=== PATIENT | male | born 1980 | race Native Hawaiian/Other Pacific Islander ===

== ENCOUNTER 2016-09-26 20:56 | Emergency (ER) | payer MEDICAID ==
[2016-09-26] MEDS ORDERED: CLINDAMYCIN 600MG/4ML VIAL 600 MG in 0.9 % SODIUM CHLORIDE 100ML 100 ML IV ONE (21:26)
--- NOTE | 2016-09-26 21:31 | Emergency Department Record ---
History of Present Illness - General Chief complaint: Rash Stated complaint: RASH R INNER THIGH Time Seen by Provider: 09/26/16 21:26 Source: Patient Mode of Arrival: Ambulatory Limitations: No limitations - History of Present Illness Initial comments: 35 yo male presents to ED with a 1-day history of right lower extremity redness and warmth extending from the proximal popliteal region to the mid-lower extremity. Patient denies fevers, chills, or history of DM. Patient denies previous DVT. Patient reports 3-4 similar previous episodes diagnosed and treated as cellulitis. Patient reports hospitalization x1 for his symptoms previously due to elevated WBC and fever symptoms. MD complaint: Rash Onset/Timin -: Days(s) Location: RLE Severity scale (1-10): 4 Quality: Other Improves with: Rest Worsens with: Palpation, Movement Context: None Associated symptoms: Denies other symptoms Treatments Prior to Arrival: None - Related Data Previous Rx's Medication Instructions Recorded Clindamycin HCl 300 mg PO Q6H #40 capsule 09/26/16 Allergies Allergy/AdvReac Type Severity Reaction Status Date / Time No Known Drug Allergies Allergy Verified 09/26/16 21:11 Travel Screening - Travel/Exposure Within Last 30 Days Have you traveled within the last 30 days?: No - Travel Symptoms Symptom Screening: None Review of Systems Constitutional: Denies: Chills, Fever, Malaise, Night sweats Eyes: Denies: Eye discharge, Eye pain ENT: Denies: Congestion, Ear pain, Epistaxis Respiratory: Denies: Cough, Dyspnea Cardiovascular: Denies: Chest pain, Dyspnea on exertion Endocrine: Denies: Fatigue, Heat or cold intolerance Gastrointestinal: Denies: Abdominal pain, Nausea, Vomiting Genitourinary: Denies: Incontinence, Retention Musculoskeletal: Denies: Back pain, Gout, Joint swelling, Neck pain Skin: Reports: Rash. Denies: Bruising, Change in color, Change in hair/nails Neurological: Denies: Abnormal gait, Confusion, Headache, Seizure Psychiatric: Denies: Anxiety Hematological/Lymphatic: Denies: Anemia, Blood Clots Past Medical History - SOCIAL HISTORY Smoking Status: Never smoker - RESPIRATORY Hx Respiratory Disorders: No - CARDIOVASCULAR Hx Cardio Disorders: No - NEURO Hx Neuro Disorders: No - GI Hx GI Disorders: No - Hx Genitourinary Disorders: No - ENDOCRINE Hx Endocrine Disorders: No - MUSCULOSKELETAL Hx Musculoskeletal Disorders: No - PSYCH Hx Psych Problems: No - HEMATOLOGY/ONCOLOGY Hx Hematology/Oncology Disorders: No Family Medical History Any Significant Family History?: Yes Hx HTN: Grandparents Physical Exam - General General Appearance: Alert, Oriented x3, Cooperative, No acute distress Limitations: No limitations - Head Head exam: Atraumatic, Normocephalic, Normal inspection Head exam detail: negative: Abrasion, Contusion, Ruffin's sign, General tenderness, Hematoma, Laceration - Eye Eye exam: Normal appearance. negative: Conjunctival injection, Periorbital swelling, Periorbital tenderness, Scleral icterus - ENT Ear exam: negative: Auricular hematoma, Auricular trauma Nasal Exam: negative: Active bleeding, Discharge, Dried blood, Foreign body Mouth exam: negative: Drooling, Laceration, Muffled voice, Tongue elevation - Neck Neck exam: Normal inspection. negative: Meningismus, Tenderness - Respiratory Respiratory exam: Normal lung sounds bilaterally. negative: Rales, Respiratory distress, Rhonchi, Stridor - Cardiovascular Cardiovascular Exam: Regular rate, Normal rhythm, Normal heart sounds - GI/Abdominal GI/Abdominal exam: Soft. negative: Rebound, Rigid, Tenderness - Rectal Rectal exam: Deferred - exam: Deferred - Extremities Extremities exam: Tenderness, Other (Mild TTP in the area of erythema extending from the proximal popliteal region to the mid-calf, no appreciable swelling on examiantion.). negative: Calf tenderness, Pedal edema - Back Back exam: Denies: CVA tenderness (R), CVA tenderness (L) - Neurological Neurological exam: Alert, Normal gait, Oriented X3 - Psychiatric Psychiatric exam: Normal affect, Normal mood - Skin Skin exam: Rash. negative: Abrasion Type of lesion: negative: abrasion Course Vital Signs 09/26/16 21:11 Temperature 98.3 F Pulse Rate 78 Respiratory 18 Rate Blood Pressure 129/87 Pulse Ox 98 - Reevaluation(s) Reevaluation #1: 09/26/16 21:32 Patient was seen and examined, reports similar symptoms x 3-4 previously without history of diagnosis of DVT despite several dopplers. Patient has no significant swelling on examination to suggest DVT, and doppler is not felt to be necessary based on the patient's history and examination. Will obtain laboratory studies and initiate treatment with Clindamycin. Reevaluation #2: 09/26/16 22:21 Labs reviewed and are grossly unremarkable for an acute process. Clindamycin has completed infusion and the patient appears stable for discharge with instructions for reassessment in 24 hours to ensure symptoms are not worsening. Patient appear stable for discharge at this time. Medical Decision Making - Lab Data Result diagrams: 09/26/16 21:49 09/26/16 21:49 Disposition Disposition: Discharge Clinical Impression: Lower extremity cellulitis Qualifiers: Laterality: right Qualified Code(s): L03.115 - Cellulitis of right lower limb Disposition: Home, Self-Care Condition: (2) Stable Instructions: Cellulitis (ED) Additional Instructions: Return to ED in 24 hours for a recheck on your cellulitis symptoms. Clindmycin as directed. Follow-up with your family doctor in 1-3 days as directed. Prescriptions: Clindamycin HCl 300 mg PO Q6H #40 capsule Forms: Patient Portal Access Time of Disposition: 22:23 Quality - Quality Measures Quality Measures: N/A - Blood Pressure Screening Blood Pressure Classification: Pre-Hypertensive BP Reading Systolic Measurement: 129 Diastolic Measurement: 87 Screening for High Blood Pressure: < Pre-Hypertensive BP, F/U Documented > [ G8950] Pre-Hypertensive Follow-up Interventions: Referral to alternative/primary care provider.
[2016-09-26 22:05] LABS: BASO % 0.4 % (0-6); EOS % 2.1 % (0-6); GRAN % 63.9 % (47-80); HEMATOCRIT 47.6 % (42.0-52.0); HEMOGLOBIN 15.8 gm/dl (14.0-18.0); LYMPH % 23.6 % (16-45); MEAN CELL VOLUME 81.1 fl (81-97); MEAN CORPUSCULAR HEMOGLOBIN 26.9 pg (27-33); MEAN CORPUSCULAR HGB CONC 33.2 g/dl (32-36); MEAN PLATELET VOLUME 9.7 fl (7.4-10.4); PLATELET COUNT 285 K/uL (130-400); RED BLOOD COUNT 5.87 M/uL (4.40-5.70); RED CELL DISTRIBUTION WIDTH 13.3 % (11.5-14.5); WHITE BLOOD COUNT W/O DIFF 9.8 K/uL (4.2-12.2)
[2016-09-26 22:17] LABS: ALB/GLOB RATIO 1.3 (1.1-1.8); ALBUMIN 4.3 gm/dL (3.5-5.0); ALKALINE PHOSPHATASE 82 U/L (38-126); ALT/SGPT 41 U/L (21-72); ANION GAP 11.4 (7-16); AST/SGOT 30 U/L (17-59); BILIRUBIN,TOTAL 0.93 mg/dL (0.2-1.3); BLOOD UREA NITROGEN 14 mg/dL (9-20); CARBON DIOXIDE 23.6 mmol/L (22-30); CREATININE 0.8 mg/dL (0.66-1.25); EST GLOMERULAR FILTRATION RATE > 60 ml/min; GLUCOSE,RANDOM 98 mg/dL (70-110); TOTAL PROTEIN 7.6 gm/dL (6.3-8.2)
== END 2016-09-26 22:52 | disposition home or self-care (01) ==
LOC: ER 20:56
DX: L03.115 Cellulitis of right lower limb (principal)
CPT/HCPCS: 80053; 85025; 96365; 99284

== ENCOUNTER 2016-11-17 18:49 | Emergency (ER) | payer MEDICAID ==
[2016-11-17] MEDS ORDERED: CLINDAMYCIN (PEDIATRIC DOSING) 600 MG in 0.9 % SODIUM CHLORIDE 100ML 100 ML IV ONE (19:54)
--- NOTE | 2016-11-17 20:01 | Emergency Department Record ---
History of Present Illness - General Chief complaint: ENT Stated complaint: SWOLLEN MOUTH Time Seen by Provider: 11/17/16 19:50 Source: Patient Mode of Arrival: Ambulatory Limitations: No limitations - History of Present Illness Initial comments: pt has swelling of r cheek from broken tooth in r upper jaw. pt has appt w dentist next week complaint: Tooth pain Onset/Timin -: Days(s) Location: Other Severity: Moderate Severity scale (1-10): 8 Quality: Other Consistency: Constant Improves with: NSAID Context- Dental: History of dental caries, Poor dental care Associated Symptoms: Toothache, Other - Related Data Previous Rx's Medication Instructions Recorded Clindamycin HCl 150 mg PO Q8HR #21 capsule 11/17/16 Clindamycin HCl [Cleocin HCl] 300 mg PO Q8HR #21 capsule 11/17/16 Hydrocodone/Acetaminophen [[place] 1 each PO Q6HR #14 tablet 11/17/16 5-325 Tablet] Allergies Allergy/AdvReac Type Severity Reaction Status Date / Time No Known Drug Allergies Allergy Verified 09/26/16 21:11 Travel Screening - Travel/Exposure Within Last 30 Days Have you traveled within the last 30 days?: No - Travel Symptoms Symptom Screening: Chills Review of Systems Reviewed: No additional complaints except as noted below Constitutional: Reports: As per HPI. Denies: Chills, Fever, Malaise, Night sweats, Weakness, Weight change Eyes: Reports: As per HPI. Denies: Eye discharge, Eye pain, Photophobia, Vision change ENT: Reports: As per HPI. Denies: Congestion, Dental pain, Ear pain, Epistaxis , Hearing loss, Throat pain Respiratory: Reports: As per HPI. Denies: Cough, Dyspnea, Hemoptysis, Stridor, Wheezes Cardiovascular: Reports: As per HPI. Denies: Arrhythmia, Chest pain, Dyspnea on exertion, Edema, Murmurs, Orthopnea, Palpitations, Paroxysmal nocturnal dyspnea, Rheumatic Fever, Syncope Endocrine: Reports: As per HPI. Denies: Fatigue, Heat or cold intolerance, Polydipsia, Polyuria Gastrointestinal: Reports: As per HPI. Denies: Abdominal pain, Constipation, Diarrhea, Hematemesis, Hematochezia, Melena, Nausea, Vomiting Genitourinary: Reports: As per HPI. Denies: Dysuria, Frequency, Hematuria, Incontinence, Retention, Testicular pain, Testicular mass, Urgency Musculoskeletal: Reports: As per HPI. Denies: Arthralgia, Back pain, Gout, Joint swelling, Myalgia, Neck pain Skin: Reports: As per HPI. Denies: Bruising, Change in color, Change in hair/ nails, Lesions, Pruritus, Rash Neurological: Reports: As per HPI. Denies: Abnormal gait, Confusion, Headache, Numbness, Paresthesias, Seizure, Tingling, Tremors, Vertigo, Weakness Psychiatric: Reports: As per HPI. Denies: Anxiety, Auditory hallucinations, Depression, Homicidal thoughts, Suicidal thoughts, Visual hallucinations Hematological/Lymphatic: Reports: As per HPI. Denies: Anemia, Blood Clots, Easy bleeding, Easy bruising, Swollen glands Past Medical History - SOCIAL HISTORY Smoking Status: Never smoker Alcohol Use: Rare Drug Use: None - RESPIRATORY Hx Respiratory Disorders: No - CARDIOVASCULAR Hx Cardio Disorders: No - NEURO Hx Neuro Disorders: No - GI Hx GI Disorders: No - Hx Genitourinary Disorders: No - ENDOCRINE Hx Endocrine Disorders: No - MUSCULOSKELETAL Hx Musculoskeletal Disorders: No - PSYCH Hx Psych Problems: No - HEMATOLOGY/ONCOLOGY Hx Hematology/Oncology Disorders: No Family Medical History Any Significant Family History?: Yes Hx HTN: Grandparents Physical Exam - General General Appearance: Alert, Oriented x3, Cooperative, Mild distress - Head Head exam: Normal inspection - Eye Eye exam: Normal appearance, PERRL, EOMI Pupils: Normal accommodation - ENT ENT exam: Normal exam, Mucous membranes moist, Normal external ear exam, Normal orophraynx, Other (swelling of r cheek) Ear exam: Normal external inspection. negative: External canal tenderness Nasal Exam: Normal inspection. negative: Discharge, Sinus tenderness Mouth exam: Normal external inspection, Tongue normal Teeth exam: Dental caries, Dental tenderness #, Fractured tooth #, Gingival enlargement Throat exam: Normal inspection. negative: Tonsillar erythema, Tonsillar exudate - Neck Neck exam: Normal inspection, Full ROM. negative: Tenderness - Respiratory Respiratory exam: Normal lung sounds bilaterally. negative: Respiratory distress - Cardiovascular Cardiovascular Exam: Regular rate, Normal rhythm, Normal heart sounds - GI/Abdominal GI/Abdominal exam: Soft, Normal bowel sounds. negative: Tenderness - Rectal Rectal exam: Deferred - exam: Deferred - Extremities Extremities exam: Normal inspection, Full ROM, Normal capillary refill. negative: Tenderness - Back Back exam: Reports: Normal inspection, Full ROM. Denies: Muscle spasm, Rash noted, Tenderness - Neurological Neurological exam: Alert, CN II-XII intact, Normal gait, Oriented X3 - Psychiatric Psychiatric exam: Normal affect, Normal mood - Skin Skin exam: Dry, Intact, Normal color, Warm Course Vital Signs 11/17/16 19:26 Temperature 98.5 F Pulse Rate 96 H Respiratory 20 Rate Blood Pressure 139/96 Pulse Ox 97 Disposition Disposition: Discharge Clinical Impression: Dental abscess Disposition: Home, Self-Care Condition: (1) Good Instructions: Dental Abscess (ED) Additional Instructions: recheck tomorrow. return sooner if worse. sleep elevated Prescriptions: Hydrocodone/Acetaminophen [[place] 5-325 Tablet] 1 each PO Q6HR #14 tablet Clindamycin HCl 150 mg PO Q8HR #21 capsule Clindamycin HCl [Cleocin HCl] 300 mg PO Q8HR #21 capsule Forms: Patient Portal Access Quality - Quality Measures Quality Measures: N/A - Blood Pressure Screening Does Patient Have Any of the Following: No Blood Pressure Classification: Hypertensive Reading Systolic Measurement: 139 Diastolic Measurement: 96 Screening for High Blood Pressure: < Pre-Hypertensive BP, F/U Documented > [ G8950] Pre-Hypertensive Follow-up Interventions: Follow-up with rescreen every year.
[2016-11-17] MEDS ORDERED: IBUPROFEN 600 MG TABLET PO ONE (20:06)
== END 2016-11-17 20:39 | disposition home or self-care (01) ==
LOC: ER 18:49
DX: K04.7 Periapical abscess without sinus (principal)
CPT/HCPCS: 96365; 99284

== ENCOUNTER 2016-11-26 17:58 | Emergency (ER) | payer MEDICAID ==
[2016-11-26] MEDS ORDERED: CLINDAMYCIN 600MG/50ML PREMIX 600 MG/50 ML BAG IVPB ONE (19:44)
--- NOTE | 2016-11-26 19:50 | Emergency Department Record ---
History of Present Illness - General Chief complaint: Edema Stated complaint: PAIN AND SWELLING IN RT LEG Time Seen by Provider: 11/26/16 19:43 Source: Patient Mode of Arrival: Ambulatory Limitations: No limitations - History of Present Illness Initial comments: 36 yo male returns to ED for evaluation of redness and warmth to the touch affecting the RLE. Patient reports several similar episodes resulting from cellulitis to the RLE, reports several doppler examinations to exclude DVTs as well (all negative). Patient report low-grade fever this morning of 101 degrees , denies history of DM or other immunocompromised diseases. Patient has seen a advertising account executive previously as well for his symptoms without any further reason for why he develops cellulitis intermittently. MD Complaint: Extremity pain, Extremity swelling Onset/Timin -: Days(s) Location: Right, Lower Leg -: Yes Fever Severity scale (1-10): 7 Quality: Aching Consistency: Constant Improves with: Nothing Worsens with: Nothing Associated Symptoms: Fever - Related Data Previous Rx's Medication Instructions Recorded Clindamycin HCl 300 mg PO QID #40 capsule 11/26/16 Allergies Allergy/AdvReac Type Severity Reaction Status Date / Time No Known Drug Allergies Allergy Verified 09/26/16 21:11 Travel Screening - Travel/Exposure Within Last 30 Days Have you traveled within the last 30 days?: No Review of Systems Constitutional: Reports: Fever. Denies: Chills, Malaise, Night sweats Eyes: Denies: Eye discharge, Eye pain ENT: Denies: Congestion, Ear pain, Epistaxis Respiratory: Denies: Cough, Dyspnea Cardiovascular: Denies: Chest pain, Dyspnea on exertion Endocrine: Denies: Fatigue, Heat or cold intolerance Gastrointestinal: Denies: Abdominal pain, Nausea, Vomiting Genitourinary: Denies: Incontinence, Retention Musculoskeletal: Reports: Myalgia. Denies: Arthralgia, Back pain, Gout, Joint swelling Skin: Reports: Change in color. Denies: Bruising, Change in hair/nails Neurological: Denies: Abnormal gait, Confusion, Headache, Tingling Psychiatric: Denies: Anxiety Hematological/Lymphatic: Denies: Anemia, Blood Clots Past Medical History - SOCIAL HISTORY Smoking Status: Never smoker Alcohol Use: Rare Drug Use: None - RESPIRATORY Hx Respiratory Disorders: No - CARDIOVASCULAR Hx Cardio Disorders: No - NEURO Hx Neuro Disorders: No - GI Hx GI Disorders: No - Hx Genitourinary Disorders: No - ENDOCRINE Hx Endocrine Disorders: No - MUSCULOSKELETAL Hx Musculoskeletal Disorders: No - PSYCH Hx Psych Problems: No - HEMATOLOGY/ONCOLOGY Hx Hematology/Oncology Disorders: No Family Medical History Any Significant Family History?: Yes Hx HTN: Grandparents Physical Exam - General General Appearance: Alert, Oriented x3, Cooperative, Mild distress Limitations: No limitations - Head Head exam: Atraumatic, Normocephalic, Normal inspection Head exam detail: negative: Abrasion, Contusion, Ruffin's sign, General tenderness, Hematoma, Laceration - Eye Eye exam: Normal appearance. negative: Conjunctival injection, Periorbital swelling, Periorbital tenderness, Scleral icterus - ENT Ear exam: negative: Auricular hematoma, Auricular trauma Nasal Exam: negative: Active bleeding, Discharge, Dried blood, Foreign body Mouth exam: negative: Drooling, Laceration, Muffled voice, Tongue elevation - Neck Neck exam: Normal inspection. negative: Meningismus, Tenderness - Respiratory Respiratory exam: Normal lung sounds bilaterally. negative: Respiratory distress, Rhonchi, Stridor, Wheezes - Cardiovascular Cardiovascular Exam: Regular rate, Normal rhythm, Normal heart sounds - GI/Abdominal GI/Abdominal exam: Soft. negative: Rebound, Rigid, Tenderness - Rectal Rectal exam: Deferred - exam: Deferred - Extremities Extremities exam: Tenderness, Other (Swelling and erythema/warmth to palpation of the RLE c/w cellulitis). negative: Calf tenderness, Pedal edema - Back Back exam: Denies: CVA tenderness (R), CVA tenderness (L) - Neurological Neurological exam: Alert, Normal gait, Oriented X3 - Skin Skin exam: Erythema Distribution of rash: RLE Course Vital Signs 11/26/16 19:14 Temperature 98.0 F Pulse Rate 83 Respiratory 18 Rate Blood Pressure 123/74 Pulse Ox 98 - Reevaluation(s) Reevaluation #1: 11/26/16 19:49 Symptoms appear c/w cellulitis, patient reports several venous doppler examinations all negative for DVT. As a result, transfer for repeat doppler does not seem necessary at this time, will initiate treatment with Clindamycin as with previous episodes and reassess. Reevaluation #2: 11/26/16 20:35 Labs reviewed, WBC 14.8, labs are otherwise grossly unremarkable for an acute process. Clindamycin has completed infusion, all questions were answered, and the patient appears stable for discharge at this time. Patient was instructed to return to ED for any worsening of his symptoms immediately. Medical Decision Making - Lab Data Result diagrams: 11/26/16 19:52 11/26/16 19:52 Disposition Disposition: Discharge Clinical Impression: Lower extremity cellulitis Qualifiers: Laterality: right Qualified Code(s): L03.115 - Cellulitis of right lower limb Disposition: Home, Self-Care Condition: (2) Stable Instructions: Cellulitis (ED) Additional Instructions: Return to ED if your symptoms worsen or if you have any concerns. Clindamycin as directed. Follow-up with your family doctor in 3-5 days as directed. Prescriptions: Clindamycin HCl 300 mg PO QID #40 capsule Forms: Patient Portal Access Time of Disposition: 19:51 Quality - Quality Measures Quality Measures: N/A - Blood Pressure Screening Does Patient Have Any of the Following: No Blood Pressure Classification: Pre-Hypertensive BP Reading Systolic Measurement: 123 Diastolic Measurement: 74 Screening for High Blood Pressure: < Pre-Hypertensive BP, F/U Documented > [ G8950] Pre-Hypertensive Follow-up Interventions: Referral to alternative/primary care provider.
[2016-11-26 20:06] LABS: HEMOGLOBIN 15.6 gm/dl (14.0-18.0); MEAN CELL VOLUME 81.5 fl (81-97); MEAN CORPUSCULAR HGB CONC 33.2 g/dl (32-36); MEAN PLATELET VOLUME 9.5 fl (7.4-10.4); PLATELET COUNT 224 K/uL (130-400); RED BLOOD COUNT 5.77 M/uL (4.40-5.70); RED CELL DISTRIBUTION WIDTH 13.4 % (11.5-14.5); WHITE BLOOD COUNT W/O DIFF 14.8 K/uL (4.2-12.2)
[2016-11-26 20:24] LABS: ALB/GLOB RATIO 1.2 (1.1-1.8); ALBUMIN 4.2 g/dL (4.0-5.0); ALKALINE PHOSPHATASE 71 U/L (40-129); ALT/SGPT 17 U/L (<41); AST/SGOT 23 U/L (10.0-50.0); BLOOD UREA NITROGEN 17 mg/dL (6-20); CREATININE 1.1 mg/dL (0.7-1.2); EST GLOMERULAR FILTRATION RATE > 60 mL/min; GLUCOSE,RANDOM 88 mg/dL (74-109); TOTAL PROTEIN 7.7 g/dL (6.6-8.7)
[2016-11-26] MEDS ORDERED: CLINDAMYCIN 150 MG CAP PO ONE (20:37)
[2016-11-26 20:41] LABS: PLATELET ESTIMATE NORMAL (NORMAL)
== END 2016-11-26 20:57 | disposition home or self-care (01) ==
LOC: ER 17:58
DX: L03.115 Cellulitis of right lower limb (principal)
CPT/HCPCS: 80053; 85027; 96365; 99284

== ENCOUNTER 2016-11-28 21:30 | Emergency (ER) | payer MEDICAID ==
--- NOTE | 2016-11-28 22:18 | Emergency Department Record ---
History of Present Illness - General Chief Complaint: Recheck - Other Stated Complaint: LOWER RT LEG SWELLING/REDNESS Time Seen by Provider: 11/28/16 21:40 Source: Patient Mode of arrival: Ambulatory Limitations: No limitations - History of Present Illness Initial Comments: 36 yo male returns to ED for evaluation of increased swelling and "little bumps to the lower leg" following treatment for recurrent cellulitis of the right LE. Patient denies reoccurrence of fever symptoms and reports that the skin of the LE is less warm to palpation. Patient reports several previous episodes of cellulitis to the RLE, denies previous history of DVT. MD Complaint: Wound re-check Onset/Timin -: Days(s) Initial Visit For: Cellulitis Returns Today for: Cellulitis follow-up Symptoms Since Prior Visit: Worsening swelling Associated Symptoms: None - Related Data Previous Rx's Medication Instructions Recorded Clindamycin HCl 300 mg PO QID #40 capsule 11/26/16 Allergies Allergy/AdvReac Type Severity Reaction Status Date / Time No Known Drug Allergies Allergy Verified 09/26/16 21:11 Travel Screening - Travel/Exposure Within Last 30 Days Have you traveled within the last 30 days?: No Review of Systems Constitutional: Denies: Chills, Fever, Malaise, Night sweats Eyes: Denies: Eye discharge, Eye pain ENT: Denies: Congestion, Ear pain, Epistaxis Respiratory: Denies: Cough, Dyspnea Cardiovascular: Denies: Chest pain, Dyspnea on exertion Endocrine: Denies: Fatigue, Heat or cold intolerance Gastrointestinal: Denies: Abdominal pain, Nausea, Vomiting Genitourinary: Denies: Incontinence, Retention Musculoskeletal: Reports: Myalgia. Denies: Arthralgia, Back pain, Gout, Joint swelling Skin: Reports: Change in color (redness to the RLE, improving per patient). Denies: Bruising Neurological: Denies: Abnormal gait, Confusion, Headache, Seizure Psychiatric: Denies: Anxiety Hematological/Lymphatic: Denies: Anemia, Blood Clots Past Medical History - SOCIAL HISTORY Smoking Status: Never smoker Alcohol Use: None Drug Use: None - RESPIRATORY Hx Respiratory Disorders: No - CARDIOVASCULAR Hx Cardio Disorders: No - NEURO Hx Neuro Disorders: No - GI Hx GI Disorders: No - Hx Genitourinary Disorders: No - ENDOCRINE Hx Endocrine Disorders: No - MUSCULOSKELETAL Hx Musculoskeletal Disorders: No - PSYCH Hx Psych Problems: No - HEMATOLOGY/ONCOLOGY Hx Hematology/Oncology Disorders: No Family Medical History Any Significant Family History?: Yes Hx HTN: Grandparents Physical Exam - General General Appearance: Alert, Oriented x3, Cooperative, Mild distress Limitations: No limitations - Head Head exam: Atraumatic, Normocephalic, Normal inspection Head exam detail: negative: Abrasion, Contusion, Ruffin's sign, General tenderness, Hematoma, Laceration - Eye Eye exam: Normal appearance. negative: Conjunctival injection, Periorbital swelling, Periorbital tenderness, Scleral icterus - ENT Ear exam: negative: Auricular hematoma, Auricular trauma Nasal Exam: negative: Active bleeding, Discharge, Dried blood, Foreign body Mouth exam: negative: Drooling, Laceration, Muffled voice, Tongue elevation - Neck Neck exam: Normal inspection. negative: Meningismus, Tenderness - Respiratory Respiratory exam: Normal lung sounds bilaterally. negative: Rales, Respiratory distress, Rhonchi, Stridor - Cardiovascular Cardiovascular Exam: Regular rate, Normal rhythm, Normal heart sounds - GI/Abdominal GI/Abdominal exam: Soft. negative: Rebound, Rigid, Tenderness - Rectal Rectal exam: Deferred - exam: Deferred - Extremities Extremities exam: Full ROM, Pedal edema, Tenderness, Other (Increeased STS of the RLE on examination, erythema is less intense from previous visit, warmth has improved.) - Back Back exam: Denies: CVA tenderness (R), CVA tenderness (L) - Neurological Neurological exam: Alert, Normal gait, Oriented X3 - Psychiatric Psychiatric exam: Normal affect, Normal mood - Skin Skin exam: Erythema. negative: Abrasion Type of lesion: negative: abrasion Course Vital Signs 11/28/16 22:08 Temperature 98.8 F Pulse Rate [ 78 Pulse Ox Probe] Respiratory 20 Rate Blood Pressure 124/73 [Left Arm] Pulse Ox 98 - Reevaluation(s) Reevaluation #1: 11/28/16 22:17 Labs ordered including D-Dimer for further evaluation of the patient's increased LE swelling, although it appears the patient's cellulitis has improved from previous visit. Reevaluation #2: 11/28/16 22:41 Labs reviewed, WBC 7.6, D-Dimer 0.38. Labs are unremarkable for an acute process. Patient was updated on all results, appears that his cellulitis is improving overall and the patient appears stable for discharge at this time. Medical Decision Making - Lab Data Result diagrams: 11/28/16 22:15 11/28/16 22:15 Disposition Disposition: Discharge Clinical Impression: Lower extremity cellulitis Qualifiers: Laterality: right Qualified Code(s): L03.115 - Cellulitis of right lower limb Disposition: Home, Self-Care Condition: (2) Stable Instructions: Cellulitis (ED) Additional Instructions: Return to ED if your symptoms worsen or if you have any concerns. Continue clindamycin as directed. Follow-up with your family doctor in 3-5 days as directed. Forms: Patient Portal Access Time of Disposition: 22:44 Quality - Quality Measures Quality Measures: N/A - Blood Pressure Screening Does Patient Have Any of the Following: No Blood Pressure Classification: Normal BP Reading Systolic Measurement: 118 Diastolic Measurement: 71 Screening for High Blood Pressure: < Normal BP, F/U Not Required > [G8783]
[2016-11-28] MEDS: CLINDAMYCIN 600MG/50ML PREMIX 600 MG/50 ML BAG IVPB ONE (22:23)
[2016-11-28] MEDS: FLUCONAZOLE 100 MG TABLET PO ONE (22:23)
[2016-11-28 22:26] LABS: HEMOGLOBIN 14.8 gm/dl (14.0-18.0); MEAN CELL VOLUME 80.3 fl (81-97); MEAN CORPUSCULAR HGB CONC 33.6 g/dl (32-36); MEAN PLATELET VOLUME 9.7 fl (7.4-10.4); PLATELET COUNT 258 K/uL (130-400); RED BLOOD COUNT 5.48 M/uL (4.40-5.70); WHITE BLOOD COUNT W/O DIFF 7.6 K/uL (4.2-12.2)
[2016-11-28 22:43] LABS: ALB/GLOB RATIO 1.1 (1.1-1.8); ALBUMIN 3.9 g/dL (4.0-5.0); ALKALINE PHOSPHATASE 63 U/L (40-129); ALT/SGPT 14 U/L (<41); AST/SGOT 21 U/L (10.0-50.0); BLOOD UREA NITROGEN 11 mg/dL (6-20); CREATININE 0.8 mg/dL (0.7-1.2); EST GLOMERULAR FILTRATION RATE > 60 mL/min; GLUCOSE,RANDOM 95 mg/dL (74-109); TOTAL PROTEIN 7.4 g/dL (6.6-8.7)
== END 2016-11-28 22:55 | disposition home or self-care (01) ==
LOC: ER 21:30
DX: L03.115 Cellulitis of right lower limb (principal); R60.0 Localized edema
CPT/HCPCS: 80053; 85027; 85379; 96365; 99284

== ENCOUNTER 2016-12-22 18:16 | Emergency (ER) | payer MEDICAID ==
[2016-12-22] MEDS ORDERED: CLINDAMYCIN 600MG/50ML PREMIX 600 MG/50 ML BAG IVPB ONE (19:18)
[2016-12-22 19:30] LABS: BASO % 0.1 % (0-6); HEMATOCRIT 45.9 % (42.0-52.0); HEMOGLOBIN 15.3 gm/dl (14.0-18.0); LYMPH % 3.4 % (16-45); MEAN CELL VOLUME 81.4 fl (81-97); MEAN CORPUSCULAR HEMOGLOBIN 27.1 pg (27-33); MEAN CORPUSCULAR HGB CONC 33.3 g/dl (32-36); MEAN PLATELET VOLUME 9.9 fl (7.4-10.4); MONO % 6.2 % (0-9); PLATELET COUNT 251 K/uL (130-400); RED BLOOD COUNT 5.64 M/uL (4.40-5.70); RED CELL DISTRIBUTION WIDTH 13.5 % (11.5-14.5)
[2016-12-22 19:32] LABS: WHITE BLOOD COUNT W/O DIFF 21.1 K/uL (4.2-12.2)
[2016-12-22 19:47] LABS: PLATELET ESTIMATE NORMAL (NORMAL)
--- NOTE | 2016-12-22 20:04 | Emergency Department Record ---
History of Present Illness - General Chief complaint: Extremity Problem Stated complaint: RED,PAINFUL SWELLING IN RT LEG Time Seen by Provider: 12/22/16 19:06 Source: Patient Mode of Arrival: Ambulatory Limitations: No limitations - History of Present Illness Initial comments: pt has developed cellulitis for the 5th time in 5 months in his r lower leg. it reoccured today. he has a fever. MD Complaint: Extremity pain, Extremity swelling Onset/Timin -: Hour(s) Location: Right, Lower Leg, Thigh History of Same: Yes Severity scale (1-10): 7 Quality: Other Consistency: Constant Improves with: Immobilization, Rest Worsens with: Exertion, Walking, Weight bearing Associated Symptoms: Denies other symptoms - Related Data Home Medications Medication Instructions Recorded Confirmed Last Taken No Home Med [NO HOME MEDS] 12/22/16 12/22/16 Unknown Allergies Allergy/AdvReac Type Severity Reaction Status Date / Time No Known Drug Allergies Allergy Verified 12/22/16 18:21 Travel Screening - Travel/Exposure Within Last 30 Days Have you traveled within the last 30 days?: No - Travel/Exposure Within Last Year Have you traveled outside the [place] in the last year?: No - Additonal Travel Details Have you been exposed to anyone with a communicable illness?: No - Travel Symptoms Symptom Screening: None Review of Systems Reviewed: No additional complaints except as noted below Constitutional: Reports: As per HPI. Denies: Chills, Fever, Malaise, Night sweats, Weakness, Weight change Eyes: Reports: As per HPI. Denies: Eye discharge, Eye pain, Photophobia, Vision change ENT: Reports: As per HPI. Denies: Congestion, Dental pain, Ear pain, Epistaxis , Hearing loss, Throat pain Respiratory: Reports: As per HPI. Denies: Cough, Dyspnea, Hemoptysis, Stridor, Wheezes Cardiovascular: Reports: As per HPI. Denies: Arrhythmia, Chest pain, Dyspnea on exertion, Edema, Murmurs, Orthopnea, Palpitations, Paroxysmal nocturnal dyspnea, Rheumatic Fever, Syncope Endocrine: Reports: As per HPI. Denies: Fatigue, Heat or cold intolerance, Polydipsia, Polyuria Gastrointestinal: Reports: As per HPI. Denies: Abdominal pain, Constipation, Diarrhea, Hematemesis, Hematochezia, Melena, Nausea, Vomiting Genitourinary: Reports: As per HPI. Denies: Dysuria, Frequency, Hematuria, Incontinence, Retention, Testicular pain, Testicular mass, Urgency Musculoskeletal: Reports: As per HPI. Denies: Arthralgia, Back pain, Gout, Joint swelling, Myalgia, Neck pain Skin: Reports: As per HPI. Denies: Bruising, Change in color, Change in hair/ nails, Lesions, Pruritus, Rash Neurological: Reports: As per HPI. Denies: Abnormal gait, Confusion, Headache, Numbness, Paresthesias, Seizure, Tingling, Tremors, Vertigo, Weakness Psychiatric: Reports: As per HPI. Denies: Anxiety, Auditory hallucinations, Depression, Homicidal thoughts, Suicidal thoughts, Visual hallucinations Hematological/Lymphatic: Reports: As per HPI. Denies: Anemia, Blood Clots, Easy bleeding, Easy bruising, Swollen glands Past Medical History - SOCIAL HISTORY Smoking Status: Never smoker Alcohol Use: Rare Drug Use: None - RESPIRATORY Hx Respiratory Disorders: No - CARDIOVASCULAR Hx Cardio Disorders: No - NEURO Hx Neuro Disorders: No - GI Hx GI Disorders: No - Hx Genitourinary Disorders: No - ENDOCRINE Hx Endocrine Disorders: No - MUSCULOSKELETAL Hx Musculoskeletal Disorders: No - PSYCH Hx Psych Problems: No - HEMATOLOGY/ONCOLOGY Hx Hematology/Oncology Disorders: No Family Medical History Any Significant Family History?: Yes Hx HTN: Grandparents Physical Exam - General General Appearance: Alert, Oriented x3, Cooperative, Mild distress - Head Head exam: Normal inspection - Eye Eye exam: Normal appearance, PERRL, EOMI Pupils: Normal accommodation - ENT ENT exam: Normal exam, Mucous membranes moist, Normal external ear exam, Normal orophraynx Ear exam: Normal external inspection. negative: External canal tenderness Nasal Exam: Normal inspection. negative: Discharge, Sinus tenderness Mouth exam: Normal external inspection, Tongue normal Teeth exam: Normal inspection. negative: Dental caries Throat exam: Normal inspection. negative: Tonsillar erythema, Tonsillar exudate - Neck Neck exam: Normal inspection, Full ROM. negative: Tenderness - Respiratory Respiratory exam: Normal lung sounds bilaterally. negative: Respiratory distress - Cardiovascular Cardiovascular Exam: Normal rhythm, Normal heart sounds, Tachycardia - GI/Abdominal GI/Abdominal exam: Soft, Normal bowel sounds. negative: Tenderness - Rectal Rectal exam: Deferred - exam: Deferred - Extremities Extremities exam: Normal inspection, Full ROM, Normal capillary refill. negative: Tenderness Image of Full Body: 1 - erythema, swelling, hot, tender - Back Back exam: Reports: Normal inspection, Full ROM. Denies: Muscle spasm, Rash noted, Tenderness - Neurological Neurological exam: Alert, CN II-XII intact, Normal gait, Oriented X3 - Psychiatric Psychiatric exam: Normal affect, Normal mood - Skin Skin exam: Dry, Intact, Normal color, Warm Course Vital Signs 12/22/16 18:24 Temperature 100.9 F H Pulse Rate 116 H Respiratory 20 Rate Blood Pressure 131/98 Pulse Ox 96 - Reevaluation(s) Reevaluation #1: 12/22/16 20:36 c/w dr lang, dr grider, dr rockwell Medical Decision Making - Lab Data Result diagrams: 12/22/16 18:50 12/22/16 18:50 Lab Results 12/22/16 12/22/16 Range/Units 18:50 18:50 WBC 21.1 H* (4.2-12.2) K/uL RBC 5.64 (4.40-5.70) M/uL Hgb 15.3 (14.0-18.0) gm/dl Hct 45.9 (42.0-52.0) % MCV 81.4 (81-97) fl MCH 27.1 (27-33) pg MCHC 33.3 (32-36) g/dl RDW 13.5 (11.5-14.5) % Plt Count 251 (130-400) K/uL MPV 9.9 (7.4-10.4) fl Neutrophils % 88.0 H (47-80) % Band Neutrophils % 2.0 (0-5) % Lymphocytes % 3.4 L (16-45) % Monocytes % 6.2 (0-9) % Eosinophils % 0.0 (0-6) % Basophils % 0.1 (0-6) % Lymphocytes 4.0 L (16-45) % Monocytes 6.0 (0-9) % Platelet Estimate Normal (NORMAL) RBC Morphology Normal D-Dimer 0.21 (0-0.59) mg/L FEU Disposition Disposition: Transfer Clinical Impression: Cellulitis Qualifiers: Site of cellulitis: extremity Site of cellulitis of extremity: lower extremity Laterality: right Qualified Code(s): L03.115 - Cellulitis of right lower limb Sepsis Qualifiers: Sepsis type: sepsis due to unspecified organism Qualified Code(s): A41.9 - Sepsis, unspecified organism Disposition: [facility] Transfer Transfer To: [facility] Reason For Transfer: inf disease Accepting Physician: dr grider Time Discussed w/Accepting Physician: 20:38 Forms: Patient Portal Access Quality - Quality Measures Quality Measures: N/A - Blood Pressure Screening Does Patient Have Any of the Following: No Blood Pressure Classification: Hypertensive Reading Systolic Measurement: 131 Diastolic Measurement: 98 Screening for High Blood Pressure: < Pre-Hypertensive BP, F/U Documented > [ G8950] Pre-Hypertensive Follow-up Interventions: Follow-up with rescreen every year.
[2016-12-22] MEDS ORDERED: ACETAMINOPHEN 500 MG TABLET PO ONE (20:20)
[2016-12-22 20:38] LABS: BLOOD UREA NITROGEN 12 mg/dL (6-20); CREATININE 0.9 mg/dL (0.7-1.2); EST GLOMERULAR FILTRATION RATE > 60 mL/min; GLUCOSE,RANDOM 109 mg/dL (74-109)
--- NOTE | 2016-12-24 09:40 | RADIOLOGY REPORT ---
DATE: 12/22/2016. EXAM: RIGHT LEG. HISTORY: Pain. TECHNIQUE: Four views of the right leg. COMPARISON: None. ENCOUNTER: Initial. FINDINGS: Diffuse subcutaneous edema which may reflect cellulitis. No soft tissue gas. No acute osseous abnormality. Small calcaneal spurs. IMPRESSION: DIFFUSE SUBCUTANEOUS EDEMA/CELLULITIS. SMALL CALCANEAL SPURS. JOB NUMBER: [id number] MTDD
== END 2016-12-22 21:40 | disposition short-term general hospital (02) ==
LOC: ER 18:16
DX: A41.9 Sepsis, unspecified organism (principal); L03.115 Cellulitis of right lower limb
CPT/HCPCS: 80048; 85027; 85379; 96365; 99285

== ENCOUNTER 2017-06-23 17:38 | Emergency (ER) | payer MEDICAID ==
[2017-06-23] MEDS ORDERED: CLINDAMYCIN 600MG/50ML PREMIX 600 MG/50 ML BAG IVPB ONE (18:49)
--- NOTE | 2017-06-23 18:55 | Emergency Department Record ---
History of Present Illness - General Chief complaint: Lower Extremity Pain Stated complaint: RIGHT LEG SWELLING Time Seen by Provider: 06/23/17 18:29 Source: Patient Mode of Arrival: Ambulatory Limitations: No limitations - History of Present Illness Initial comments: 36 yo male presents to ED for evaluation of swelling and redness to the right lower extremity that began last night. Patient reports numerous episodes of cellulitis to the right lower extremity previously, reports undergoing several dopplers of the lower extremity which are "always negative for blood clots". Patient has been seen by an ID specialist for his recurrent cellulitis symptoms at [facility], had been taking daily PCN to reduce the incidence of recurrent infections as well. Patient reports that his symptoms are worse with increased activity at work. Patient denies fevers, chills, nausea, or vomiting symptoms. MD Complaint: Extremity swelling Onset/Timin -: Days(s) Location: Right, Lower Leg History of Same: Yes Severity scale (1-10): 3 Quality: Other Consistency: Constant Improves with: Nothing Worsens with: Walking - Related Data Previous Rx's Medication Instructions Recorded Clindamycin HCl 300 mg PO Q6H #28 capsule 06/23/17 Allergies Allergy/AdvReac Type Severity Reaction Status Date / Time No Known Drug Allergies Allergy Verified 12/22/16 18:21 Travel Screening - Travel/Exposure Within Last 30 Days Have you traveled within the last 30 days?: No Review of Systems Constitutional: Denies: Chills, Fever, Malaise, Night sweats Eyes: Denies: Eye discharge, Eye pain ENT: Denies: Congestion, Ear pain, Epistaxis Respiratory: Denies: Cough, Dyspnea Cardiovascular: Denies: Chest pain, Dyspnea on exertion Endocrine: Denies: Fatigue, Heat or cold intolerance Gastrointestinal: Denies: Nausea, Vomiting Genitourinary: Denies: Incontinence, Retention Musculoskeletal: Denies: Arthralgia, Back pain, Gout, Joint swelling Skin: Reports: Change in color, Rash. Denies: Bruising, Change in hair/nails Neurological: Denies: Abnormal gait, Confusion, Headache, Tingling Psychiatric: Denies: Anxiety Hematological/Lymphatic: Denies: Anemia, Blood Clots Past Medical History - SOCIAL HISTORY Smoking Status: Never smoker Alcohol Use: Occasional Drug Use: None - RESPIRATORY Hx Respiratory Disorders: No - CARDIOVASCULAR Hx Cardio Disorders: No - NEURO Hx Neuro Disorders: No - GI Hx GI Disorders: No - Hx Genitourinary Disorders: No - ENDOCRINE Hx Endocrine Disorders: No - MUSCULOSKELETAL Hx Musculoskeletal Disorders: No - PSYCH Hx Psych Problems: No - HEMATOLOGY/ONCOLOGY Hx Hematology/Oncology Disorders: No Family Medical History Any Significant Family History?: Yes Hx HTN: Grandparents Physical Exam - General General Appearance: Alert, Oriented x3, Cooperative, Mild distress Limitations: No limitations - Head Head exam: Atraumatic, Normocephalic, Normal inspection Head exam detail: negative: Abrasion, Contusion, Ruffin's sign, General tenderness, Hematoma - Eye Eye exam: Normal appearance. negative: Conjunctival injection, Periorbital swelling, Periorbital tenderness, Scleral icterus - ENT Ear exam: negative: Auricular hematoma, Auricular trauma Nasal Exam: negative: Active bleeding, Discharge, Dried blood, Foreign body, Sinus tenderness Mouth exam: negative: Drooling, Laceration, Muffled voice, Tongue elevation - Neck Neck exam: Normal inspection. negative: Meningismus, Tenderness - Respiratory Respiratory exam: Normal lung sounds bilaterally. negative: Respiratory distress, Rhonchi, Stridor, Wheezes - Cardiovascular Cardiovascular Exam: Regular rate, Normal rhythm, Normal heart sounds - GI/Abdominal GI/Abdominal exam: Soft. negative: Distended, Rebound, Rigid, Tenderness - Rectal Rectal exam: Deferred - exam: Deferred - Extremities Extremities exam: Tenderness, Other (Diffuse erythema to the right LE with clear demarcation present, mild STS, no calf pain or edema present.). negative : Calf tenderness, Pedal edema - Back Back exam: Denies: CVA tenderness (R), CVA tenderness (L) - Neurological Neurological exam: Alert, Normal gait, Oriented X3 - Psychiatric Psychiatric exam: Normal affect, Normal mood - Skin Skin exam: Erythema. negative: Abrasion Type of lesion: Rash Course Vital Signs 06/23/17 18:36 Temperature 98.2 F Pulse Rate 94 H Respiratory 20 Rate Blood Pressure 128/83 Pulse Ox 100 - Reevaluation(s) Reevaluation #1: 06/23/17 18:54 Patient was seen and examined, discussed ordering doppler examination to exclude DVT, patient declined. Patient reports numerous episodes of cellulitis with similar presentations, will obtain laboratory studies and initiate treatment with Clindamycin as this has improved his symptoms previously. Reevaluation #2: 06/23/17 19:43 Laborite studies were reviewed, CRP 16, WBC 16.4, with 84% neutrophils. Patient was updated on all results, and reports that he wants to be treated as an outpatient. Will discharge home on Clindamycin with instructions to return to the ED in 48 hours for re-evaluation of his cellulitis symptoms. Medical Decision Making - Lab Data Result diagrams: 06/23/17 19:00 06/23/17 19:00 Disposition Disposition: Discharge Clinical Impression: Cellulitis of lower extremity Qualifiers: Laterality: right Qualified Code(s): L03.115 - Cellulitis of right lower limb Disposition: Home, Self-Care Condition: (2) Stable Instructions: Cellulitis (ED) Additional Instructions: Return to ED if your symptoms worsen or if you have any concerns. Clindamycin as directed. Follow-up with your family doctor in 1-3 days as directed. Prescriptions: Clindamycin HCl 300 mg PO Q6H #28 capsule Forms: Patient Portal Access Time of Disposition: 19:11 Quality - Quality Measures Quality Measures: N/A - Blood Pressure Screening Does Patient Have Any of the Following: No Blood Pressure Classification: Hypertensive Reading Systolic Measurement: 126 Diastolic Measurement: 92 Screening for High Blood Pressure: < First Hypertensive BP, F/U Documented > [ G8950] First Hypertensive Follow-up Interventions: Referral to alternative/primary care provider.
[2017-06-23 19:19] LABS: HEMATOCRIT 47.6 % (42.0-52.0); HEMOGLOBIN 15.6 gm/dl (14.0-18.0); MEAN CELL VOLUME 82.6 fl (81-97); MEAN CORPUSCULAR HGB CONC 32.8 g/dl (32-36); MEAN PLATELET VOLUME 9.7 fl (7.4-10.4); PLATELET COUNT 239 K/uL (130-400); RED BLOOD COUNT 5.76 M/uL (4.40-5.70); RED CELL DISTRIBUTION WIDTH 13.3 % (11.5-14.5); WHITE BLOOD COUNT W/O DIFF 16.4 K/uL (4.2-12.2)
[2017-06-23 19:29] LABS: BLOOD UREA NITROGEN 14 mg/dL (6-20)
[2017-06-23 19:30] LABS: CREATININE 0.9 mg/dL (0.7-1.2); EST GLOMERULAR FILTRATION RATE > 60 mL/min
[2017-06-23 19:32] LABS: GLUCOSE,RANDOM 100 mg/dL (74-109)
[2017-06-23 19:34] LABS: PLATELET ESTIMATE NORMAL (NORMAL)
[2017-06-23 19:35] LABS: ALB/GLOB RATIO 1.1 (1.1-1.8); ALBUMIN 4.2 g/dL (4.0-5.0); ALKALINE PHOSPHATASE 71 U/L (40-129); ALT/SGPT 19 U/L (<41); AST/SGOT 24 U/L (10.0-50.0); C-REACTIVE PROTEIN 16.43 mg/dL (<0.5)
[2017-06-23 19:55] LABS: ERYTHROCYTE SEDIMENTATION RATE 5 mm/hr (0-15)
== END 2017-06-23 19:59 | disposition home or self-care (01) ==
LOC: ER 17:38
DX: L03.115 Cellulitis of right lower limb (principal); M79.661 Pain in right lower leg
CPT/HCPCS: 80053; 85027; 85651; 86140; 96374; 99284

== ENCOUNTER 2017-09-05 07:46 | Emergency (ER) | payer MEDICAID ==
[2017-09-05] MEDS ORDERED: CLINDAMYCIN 600MG/50ML PREMIX 600 MG/50 ML BAG IVPB ONE (07:54)
--- NOTE | 2017-09-05 07:55 | Emergency Department Record ---
History of Present Illness - General Chief complaint: Lower Extremity Pain Stated complaint: POSSIBLE LEG INFECTION Time Seen by Provider: 09/05/17 07:48 Source: Patient Mode of Arrival: Ambulatory Limitations: No limitations - History of Present Illness Initial comments: 36 yo male presents with lower extremity pain. He reports he has had this several times in the past with the diagnosis of cellulitis. He has had recurrent cellulitis many times in the past. He has had several lower extremity dopplers in the past that have been normal without history of prior DVT. He has been seen by infectious disease specialist in the past as well. No specific diagnosis made other than cellulitis. No blisters or weeping. No redness. No fever but he started having chills last night around midnight. No other symptoms such as cough or chest pain. He is not on any immune suppressive medications. No swelling or redness at this time. MD Complaint: Extremity pain, Other (Hx of cellulitis) -: Days(s) Location: Right -: Yes Myalgia Radiation: Distal Quality: Aching Consistency: Constant Improves with: Nothing Worsens with: Nothing Associated Symptoms: Denies other symptoms - Related Data Previous Rx's Medication Instructions Recorded Ciprofloxacin HCl [Cipro] 500 mg PO Q12HR #14 tablet 09/05/17 Clindamycin HCl 300 mg PO QID #40 capsule 09/05/17 Hydrocodone/Acetaminophen [[place] 1 tab PO Q8H PRN #10 tab 09/05/17 5mg/325mg] Allergies Allergy/AdvReac Type Severity Reaction Status Date / Time No Known Drug Allergies Allergy Verified 12/22/16 18:21 Review of Systems Constitutional: Denies: Chills, Fever, Malaise, Weakness Eyes: Denies: Eye discharge ENT: Denies: Congestion, Throat pain Respiratory: Denies: Cough Cardiovascular: Denies: Chest pain, Palpitations, Syncope Endocrine: Denies: Fatigue Gastrointestinal: Denies: Abdominal pain, Diarrhea, Nausea, Vomiting Genitourinary: Denies: Dysuria, Frequency, Hematuria Musculoskeletal: Reports: Myalgia. Denies: Arthralgia Skin: Reports: Change in color. Denies: Bruising Neurological: Denies: Numbness, Tremors, Vertigo, Weakness Psychiatric: Denies: Anxiety Hematological/Lymphatic: Denies: Easy bleeding, Easy bruising, Swollen glands Past Medical History - SOCIAL HISTORY Smoking Status: Never smoker Drug Use: None - RESPIRATORY Hx Respiratory Disorders: No - CARDIOVASCULAR Hx Cardio Disorders: No - NEURO Hx Neuro Disorders: No - GI Hx GI Disorders: No - Hx Genitourinary Disorders: No - ENDOCRINE Hx Endocrine Disorders: No - MUSCULOSKELETAL Hx Musculoskeletal Disorders: No - PSYCH Hx Psych Problems: No - HEMATOLOGY/ONCOLOGY Hx Hematology/Oncology Disorders: No Family Medical History Hx HTN: Grandparents Physical Exam - General General Appearance: Alert, Oriented x3, Cooperative, No acute distress Limitations: No limitations - Head Head exam: Normal inspection - Eye Eye exam: Normal appearance, Conjunctival injection. negative: Scleral icterus - ENT ENT exam: Normal exam, Mucous membranes moist Ear exam: Normal external inspection Nasal Exam: Normal inspection Mouth exam: Normal external inspection - Neck Neck exam: Normal inspection - Respiratory Respiratory exam: Normal lung sounds bilaterally. negative: Respiratory distress - Cardiovascular Cardiovascular Exam: Regular rate, Normal rhythm, Normal heart sounds - GI/Abdominal GI/Abdominal exam: Soft. negative: Tenderness - Rectal Rectal exam: Deferred - exam: Deferred - Extremities Extremities exam: Full ROM, Normal capillary refill, Tenderness, Other (Normal inspection of the leg. No swelling, redness, or skin changes. He is tender upper calf, posterior popliteal area, and the distal medial thigh.). negative: Normal inspection, Calf tenderness, Joint swelling, Pedal edema - Back Back exam: Reports: Normal inspection, Full ROM. Denies: CVA tenderness (R), CVA tenderness (L), Muscle spasm, Rash noted, Tenderness - Neurological Neurological exam: Alert, Normal gait, Oriented X3. negative: Altered - Psychiatric Psychiatric exam: Normal affect, Normal mood. negative: Agitated, Anxious, Depressed, Manic - Skin Skin exam: Dry, Erythema, Intact, Normal color, Warm. negative: Cyanosis, Diaphoretic, Mottled, Petechiae, Rash, Vesicles Course - Reevaluation(s) Reevaluation #1: 09/05/17 07:53 The EMR was reviewed from prior visits with similar presentation. Most recent was June of 2017. 09/05/17 08:29 The labs were reviewed The CBC was reviewed. The WBC count is 17 The BMP was reviewed. No acute changes. 09/05/17 08:36 The CRP is normal at 0.23 09/05/17 10:08 The venous doppler was negative for DVT. [address] noted in the groin. 09/05/17 10:22 I recommended admission for IV antibiotics given his labs and vitals. He declines at this time. I explained that I recommend signing out AMA. He understands and agrees. AMA Following discussion with the patient regarding admission, the patient reports that he want to leave AMA at this time. Risks of , permanent impairment, or worsening of their current condition were discussed as well as the benefit of (further observation and admission for further evaluation) of the presenting symptoms of fever with leg infection. Patient verbalizes understanding of all risks and benefits, desires to leave AMA despite these risks. Based on my examination, the patient is alert, oriented, and answers all questions appropriately. Patient appears to have the capacity to make rational decisions based on my examination. Patient was encouraged to return to the ED immediately if they change their mind about treatment and want to be re- evaluated. He is aware the infection can worsen, he still has a fever and an elevated HR. He has agreed to 24 hour recheck in the ED and will return sooner if worse. 09/05/17 10:28 Medical Decision Making - Lab Data Result diagrams: 09/05/17 08:08 09/05/17 08:08 Disposition Disposition: Discharge Clinical Impression: Cellulitis of lower extremity Disposition: Against Medical Advice Condition: (2) Stable Instructions: Cellulitis (ED), Against Medical Advice (ED) Additional Instructions: Return immediately if worse or any new concerns Fill your antibiotics today You are signing out AMA at this time Return in 24 hours for a recheck of the infection Prescriptions: Ciprofloxacin HCl [Cipro] 500 mg PO Q12HR #14 tablet Clindamycin HCl 300 mg PO QID #40 capsule Hydrocodone/Acetaminophen [[place] 5mg/325mg] 1 tab PO Q8H PRN #10 tab PRN Reason: Pain - General Forms: Patient Portal Access Quality - Quality Measures Quality Measures: N/A - Blood Pressure Screening Does Patient Have Any of the Following: No Blood Pressure Classification: Pre-Hypertensive BP Reading Systolic Measurement: 128 Diastolic Measurement: 70 Screening for High Blood Pressure: < Pre-Hypertensive BP, F/U Documented > [ G8950] Pre-Hypertensive Follow-up Interventions: Referral to alternative/primary care provider.
[2017-09-05] MEDS ORDERED: 0.9 % SODIUM CHLORIDE 1,000 ML BAG IV ONE (08:07)
[2017-09-05] MEDS ORDERED: ACETAMINOPHEN 500 MG TABLET PO ONE (08:07)
[2017-09-05 08:20] LABS: HEMATOCRIT 49.7 % (42.0-52.0); HEMOGLOBIN 16.3 gm/dl (14.0-18.0); MEAN CELL VOLUME 83.1 fl (81-97); MEAN CORPUSCULAR HEMOGLOBIN 27.2 pg (27-33); MEAN CORPUSCULAR HGB CONC 32.8 g/dl (32-36); MEAN PLATELET VOLUME 9.5 fl (7.4-10.4); PLATELET COUNT 233 K/uL (130-400); RED BLOOD COUNT 5.98 M/uL (4.40-5.70); RED CELL DISTRIBUTION WIDTH 13.6 % (11.5-14.5)
[2017-09-05 08:24] LABS: BLOOD UREA NITROGEN 10 mg/dL (6-20)
[2017-09-05 08:25] LABS: CREATININE 0.8 mg/dL (0.7-1.2); EST GLOMERULAR FILTRATION RATE > 60 mL/min
[2017-09-05 08:27] LABS: GLUCOSE,RANDOM 118 mg/dL (74-109)
[2017-09-05] MEDS ORDERED: KETOROLAC 30 MG/ML VIAL IVP ONE (08:29)
[2017-09-05 08:30] LABS: C-REACTIVE PROTEIN 0.23 mg/dL (<0.5)
[2017-09-05] MEDS ORDERED: CIPROFLOXACIN LACTATE/D5W 400 MG/200 ML BAG IVPB ONE (08:36)
[2017-09-05] MEDS ORDERED: IBUPROFEN 600 MG TABLET PO ONE (09:59)
--- NOTE | 2017-09-07 08:04 | US VENOUS DOPPLER REPORT ---
EXAM: ULTRASOUND OF THE DEEP VENOUS SYSTEM OF THE RIGHT LOWER EXTREMITY HISTORY: SWELLING, EDEMA. TECHNIQUE: Sonographic evaluation of the deep venous system of the right lower extremity was performed with the addition of Doppler, compression, and augmentation. FINDINGS: No evidence of deep vein thrombosis in the right lower extremity. Incidental note is made of prominent lymph nodes in the right inguinal region. These measure 4.8 cm x 3.0 cm and 2.0 cm x 1.6 cm. IMPRESSION: 1. NO SONOGRAPHIC EVIDENCE OF DEEP VEIN THROMBOSIS. 2. PROMINENT RIGHT INGUINAL LYMPH NODES MEASURING 4.8 CM X 3.0 CM IN MAXIMAL DIAMETER. JOB NUMBER: [id number] MTDD
== END 2017-09-05 10:36 | disposition left against medical advice (07) ==
LOC: ER 07:46
DX: L03.115 Cellulitis of right lower limb (principal)
CPT/HCPCS: 99284 ×2; 96365; 96366; 96375; 96367; 86140; 80048; 85027; 93971; J0744; J1885; J7030

== ENCOUNTER 2017-09-05 22:46 | Inpatient (IN) | payer MEDICAID ==
[2017-09-05] MEDS ORDERED: ACETAMINOPHEN 500 MG TABLET PO ONE (23:17)
[2017-09-05 23:19] LABS: BASO % 0.1 % (0-6); HEMATOCRIT 46.6 % (42.0-52.0); HEMOGLOBIN 15.3 gm/dl (14.0-18.0); LYMPH % 1.7 % (16-45); MEAN CELL VOLUME 83.2 fl (81-97); MEAN CORPUSCULAR HEMOGLOBIN 27.3 pg (27-33); MEAN CORPUSCULAR HGB CONC 32.8 g/dl (32-36); MEAN PLATELET VOLUME 9.6 fl (7.4-10.4); MONO % 2.9 % (0-9); PLATELET COUNT 234 K/uL (130-400); RED CELL DISTRIBUTION WIDTH 13.4 % (11.5-14.5)
[2017-09-05 23:23] LABS: WHITE BLOOD COUNT W/O DIFF 28.4 K/uL (4.2-12.2)
[2017-09-05] MEDS ORDERED: CLINDAMYCIN 600MG/50ML PREMIX 600 MG/50 ML BAG IVPB ONE (23:43)
--- NOTE | 2017-09-06 00:23 | Emergency Department Record ---
History of Present Illness - General Chief Complaint: Recheck - Other Stated Complaint: WORSENING CELLULITIS Time Seen by Provider: 09/05/17 23:37 Source: Patient Mode of arrival: Ambulatory Limitations: No limitations - History of Present Illness Initial Comments: pt has frequent problems with cellulitis. he has been admitted here and other hospitals and has seen infectious disease before... pt was here this morning 12 hrs ago and signed out ama because he didnt want to be admitted. he was started on clindamycin and cipro. his wbc this am was 17 and he had a fever. he returns tonight because he is worse. he has a fever and more redness and pain. MD Complaint: Wound re-check Onset/Timin -: Hour(s) Initial Visit For: Cellulitis Returns Today for: Cellulitis follow-up, Needs IV antibiotics, Persistent/ worsening pain related to initial visit Symptoms Since Prior Visit: Fever, Worsening pain, Worsening redness Associated Symptoms: Chills Treatments Prior to Arrival: Given antibiotics on initial visit - Related Data Previous Rx's Medication Instructions Recorded Ciprofloxacin HCl [Cipro] 500 mg PO Q12HR #14 tablet 09/05/17 Clindamycin HCl 300 mg PO QID #40 capsule 09/05/17 Hydrocodone/Acetaminophen [[place] 1 tab PO Q8H PRN #10 tab 09/05/17 5mg/325mg] Allergies Allergy/AdvReac Type Severity Reaction Status Date / Time No Known Drug Allergies Allergy Verified 12/22/16 18:21 Travel Screening - Travel/Exposure Within Last 30 Days Have you traveled within the last 30 days?: No Review of Systems Reviewed: No additional complaints except as noted below Constitutional: Reports: As per HPI, Fever. Denies: Chills, Malaise, Night sweats, Weakness, Weight change Eyes: Reports: As per HPI. Denies: Eye discharge, Eye pain, Photophobia, Vision change ENT: Reports: As per HPI. Denies: Congestion, Dental pain, Ear pain, Epistaxis , Hearing loss, Throat pain Respiratory: Reports: As per HPI. Denies: Cough, Dyspnea, Hemoptysis, Stridor, Wheezes Cardiovascular: Reports: As per HPI. Denies: Arrhythmia, Chest pain, Dyspnea on exertion, Edema, Murmurs, Orthopnea, Palpitations, Paroxysmal nocturnal dyspnea, Rheumatic Fever, Syncope Endocrine: Reports: As per HPI. Denies: Fatigue, Heat or cold intolerance, Polydipsia, Polyuria Gastrointestinal: Reports: As per HPI. Denies: Abdominal pain, Constipation, Diarrhea, Hematemesis, Hematochezia, Melena, Nausea, Vomiting Genitourinary: Reports: As per HPI. Denies: Dysuria, Frequency, Hematuria, Incontinence, Retention, Testicular pain, Testicular mass, Urgency Musculoskeletal: Reports: As per HPI. Denies: Arthralgia, Back pain, Gout, Joint swelling, Myalgia, Neck pain Skin: Reports: As per HPI. Denies: Bruising, Change in color, Change in hair/ nails, Lesions, Pruritus, Rash Neurological: Reports: As per HPI. Denies: Abnormal gait, Confusion, Headache, Numbness, Paresthesias, Seizure, Tingling, Tremors, Vertigo, Weakness Psychiatric: Reports: As per HPI. Denies: Anxiety, Auditory hallucinations, Depression, Homicidal thoughts, Suicidal thoughts, Visual hallucinations Hematological/Lymphatic: Reports: As per HPI. Denies: Anemia, Blood Clots, Easy bleeding, Easy bruising, Swollen glands Past Medical History - SOCIAL HISTORY Smoking Status: Never smoker Alcohol Use: None Drug Use: None - RESPIRATORY Hx Respiratory Disorders: No - CARDIOVASCULAR Hx Cardio Disorders: No - NEURO Hx Neuro Disorders: No - GI Hx GI Disorders: No - Hx Genitourinary Disorders: No - ENDOCRINE Hx Endocrine Disorders: No - MUSCULOSKELETAL Hx Musculoskeletal Disorders: No - PSYCH Hx Psych Problems: No - HEMATOLOGY/ONCOLOGY Hx Hematology/Oncology Disorders: No Family Medical History Any Significant Family History?: Yes Hx HTN: Grandparents Physical Exam - General General Appearance: Alert, Oriented x3, Cooperative, Mild distress - Head Head exam: Normal inspection - Eye Eye exam: Normal appearance, PERRL, EOMI Pupils: Normal accommodation - ENT ENT exam: Normal exam, Mucous membranes moist, Normal external ear exam, Normal orophraynx Ear exam: Normal external inspection. negative: External canal tenderness Nasal Exam: Normal inspection. negative: Discharge, Sinus tenderness Mouth exam: Normal external inspection, Tongue normal Teeth exam: Normal inspection. negative: Dental caries Throat exam: Normal inspection. negative: Tonsillar erythema, Tonsillar exudate - Neck Neck exam: Normal inspection, Full ROM. negative: Tenderness - Respiratory Respiratory exam: Normal lung sounds bilaterally. negative: Respiratory distress - Cardiovascular Cardiovascular Exam: Regular rate, Normal rhythm, Normal heart sounds - GI/Abdominal GI/Abdominal exam: Soft, Normal bowel sounds. negative: Tenderness - Rectal Rectal exam: Deferred - exam: Deferred - Extremities Extremities exam: Normal inspection, Full ROM, Normal capillary refill, Tenderness - Back Back exam: Reports: Normal inspection, Full ROM. Denies: Muscle spasm, Rash noted, Tenderness - Neurological Neurological exam: Alert, CN II-XII intact, Normal gait, Oriented X3 - Psychiatric Psychiatric exam: Normal affect, Normal mood - Skin Skin exam: Dry, Intact, Normal color, Warm Course Vital Signs 09/05/17 22:54 Temperature 100.4 F H Pulse Rate [ 111 H Pulse Ox Probe] Respiratory 32 H Rate Blood Pressure 121/83 [Left Arm] Pulse Ox 98 - Reevaluation(s) Reevaluation #1: 09/06/17 00:26 in 12 hours pts wbcs went from 17 to 28 despite taking oral abx. it was reccomended that pt be transferred to where there is infectious disease but he refused. Medical Decision Making - Lab Data Result diagrams: 09/05/17 23:05 Lab Results 09/05/17 09/05/17 Range/Units 00:01 23:05 WBC 28.4 H* (4.2-12.2) K/uL RBC 5.60 (4.40-5.70) M/uL Hgb 15.3 (14.0-18.0) gm/dl Hct 46.6 (42.0-52.0) % MCV 83.2 (81-97) fl MCH 27.3 (27-33) pg MCHC 32.8 (32-36) g/dl RDW 13.4 (11.5-14.5) % Plt Count 234 (130-400) K/uL MPV 9.6 (7.4-10.4) fl Neutrophils % 92.0 H (47-80) % Band Neutrophils % 4.0 (0-5) % Lymphocytes % 1.7 L (16-45) % Monocytes % 2.9 (0-9) % Eosinophils % 0.0 (0-6) % Basophils % 0.1 (0-6) % Lymphocytes 1.0 L (16-45) % Monocytes 3.0 (0-9) % Basophils 0.0 (0-6) % Eosinophil Count 0.0 (0-6) % Lactic Acid 2.6 H (0.5-2.2) mmol/L Disposition Disposition: Admit Clinical Impression: Cellulitis Qualifiers: Site of cellulitis: extremity Site of cellulitis of extremity: lower extremity Laterality: right Qualified Code(s): L03.115 - Cellulitis of right lower limb Disposition: Still a Patient at [facility] Decision to Admit: Admit from ER Decision to Admit Date: 09/06/17 Decision to Admit Time: 00:29 Quality - Quality Measures Quality Measures: N/A - Blood Pressure Screening Does Patient Have Any of the Following: No Blood Pressure Classification: Pre-Hypertensive BP Reading Systolic Measurement: 121 Diastolic Measurement: 83 Screening for High Blood Pressure: < Pre-Hypertensive BP, F/U Documented > [ [id number]] Pre-Hypertensive Follow-up Interventions: Follow-up with rescreen every year.
[2017-09-06] MEDS: IBUPROFEN 400 MG TABLET PO ONE ×2 (00:34→13:17)
[2017-09-06 00:42] LABS: BLOOD UREA NITROGEN 15 mg/dL (6-20); CREATININE 1.3 mg/dL (0.7-1.2); EST GLOMERULAR FILTRATION RATE > 60 mL/min; GLUCOSE,RANDOM 118 mg/dL (74-109)
[2017-09-06] MEDS ORDERED: 0.9 % SODIUM CHLORIDE 1000ML 1,000 ML IV ONE (06:55)
[2017-09-06] MEDS ORDERED: CLINDAMYCIN 600MG/50ML PREMIX 600 MG/50 ML BAG IVPB SCH (08:00)
--- NOTE | 2017-09-06 10:02 | History & Physical ---
History of Present Illness - Date of Service Date of Service for History & Physical: 09/06/17 - History of Present Illness Admitting Diagnosis: cellulitis History of Present Illness: 36 year old male presents for cellulitis of the right lower leg. Patient was seen in ER 09/05/17 for similar symptoms, WBC at that time was 17, patient was febrile at 100.4F, mild erythema noted to right lower extremity. Patient refused admission at that time and left AMA with clindamycin and cipro PO. Patient returned to ER about 12 hours later with significant increased redness of right lower extremity and continued fever and malaise. Patient has had recurrent cellulitis infections requiring admissions to both [facility] and [facility] with ID consult. No other medical history, no current medications, no PCP. ER Course: VS: Temp 100.4F, HR 111, RR 32, BP 121/83, Pulse ox 98% Labs: WBC 28.4, lactic 2.6, neutrophils 92%, blood cultures drawn Patient started on clindamycin IVP Refused transfer to [facility] or [facility] due to bad past experiences 09/06/2017: Patient alert and oriented x 4, sleeping upon entering room. Appears flushed, describes intermittent chills, sweating, and malaise. Temp 100.4, HR 96, BP 100/70, RR 20, Pulse ox 96% RA. Significant erythema noted on right lower extremity that has progressed into his groin, denies any pain at this time. Travel Screening - Travel/Exposure Within Last 30 Days Have you traveled within the last 30 days?: No - Travel/Exposure Within Last Year Have you traveled outside the [place] in the last year?: No - Additonal Travel Details Have you been exposed to anyone with a communicable illness?: No - Travel Symptoms Symptom Screening: Fever (Subjective) Review of Systems Constitutional: Reports: As per HPI, Fever. Denies: Chills, Malaise, Night sweats, Weakness, Weight change Eyes: Reports: As per HPI. Denies: Eye discharge, Eye pain, Photophobia, Vision change ENT: Reports: As per HPI. Denies: Congestion, Dental pain, Ear pain, Epistaxis , Hearing loss, Throat pain Respiratory: Reports: As per HPI. Denies: Cough, Dyspnea, Hemoptysis, Stridor, Wheezes Cardiovascular: Reports: As per HPI. Denies: Arrhythmia, Chest pain, Dyspnea on exertion, Edema, Murmurs, Orthopnea, Palpitations, Paroxysmal nocturnal dyspnea, Rheumatic Fever, Syncope Endocrine: Reports: As per HPI. Denies: Fatigue, Heat or cold intolerance, Polydipsia, Polyuria Gastrointestinal: Reports: As per HPI. Denies: Abdominal pain, Constipation, Diarrhea, Hematemesis, Hematochezia, Melena, Nausea, Vomiting Genitourinary: Reports: As per HPI. Denies: Dysuria, Frequency, Hematuria, Incontinence, Retention, Testicular pain, Testicular mass, Urgency Musculoskeletal: Reports: As per HPI. Denies: Arthralgia, Back pain, Gout, Joint swelling, Myalgia, Neck pain Skin: Reports: As per HPI, Change in color (erythema RLE). Denies: Bruising, Change in hair/nails, Lesions, Pruritus, Rash Neurological: Reports: As per HPI. Denies: Abnormal gait, Confusion, Headache, Numbness, Paresthesias, Seizure, Tingling, Tremors, Vertigo, Weakness Psychiatric: Reports: As per HPI. Denies: Anxiety, Auditory hallucinations, Depression, Homicidal thoughts, Suicidal thoughts, Visual hallucinations Hematological/Lymphatic: Reports: As per HPI. Denies: Anemia, Blood Clots, Easy bleeding, Easy bruising, Swollen glands Past Medical History - SOCIAL HISTORY Smoking Status: Never smoker Alcohol Use: Rare Drug Use: None - RESPIRATORY Hx Respiratory Disorders: No - CARDIOVASCULAR Hx Cardio Disorders: No - NEURO Hx Neuro Disorders: No - GI Hx GI Disorders: No - Hx Genitourinary Disorders: No - ENDOCRINE Hx Endocrine Disorders: No - MUSCULOSKELETAL Hx Musculoskeletal Disorders: No - PSYCH Hx Psych Problems: No - HEMATOLOGY/ONCOLOGY Hx Hematology/Oncology Disorders: No Family Medical History Any Significant Family History?: Yes Family Hx Comment (NOT TO BE USED IN PLACE OF ITEMS BELOW): HTN Hx HTN: Grandparents H&P Meds/Allergies - Allergies Allergies: Allergies Allergy/AdvReac Type Severity Reaction Status Date / Time No Known Drug Allergies Allergy Verified 12/22/16 18:21 - Home Medications Previous Rx's Medication Instructions Recorded Ciprofloxacin HCl [Cipro] 500 mg PO Q12HR #14 tablet 09/05/17 Clindamycin HCl 300 mg PO QID #40 capsule 09/05/17 Hydrocodone/Acetaminophen [[place] 1 tab PO Q8H PRN #10 tab 09/05/17 5mg/325mg] - Active Medications Active Medications: Current Medications Acetaminophen (Tylenol 500mg Tab) 1,000 mg PO Q6H PRN PRN Reason: PAIN - MILD(1-4)/FEVER Clindamycin Phosphate (Cleocin 600 [id number]) 600 mg in 50 mls @ 100 mls/ hr IVPB Q8H [facility] Last Infusion: 09/06/17 08:48 Dose: Infused Sodium Chloride () 1,000 mls @ 125 mls/hr IV .Q8H [facility] Physical Exam - Vital Signs Vital Signs: Vital Signs - Last 24 Hrs Temp Pulse Resp BP BP Pulse Ox 09/06/17 08:26 100.3 F H 95 H 18 100/70 98 09/06/17 06:00 98.4 F 91 H 20 104/76 96 09/06/17 00:55 99.9 F H 98 H 20 96/55 96 09/06/17 00:33 101.4 F H 104 H 28 H 103/62 94 L 09/05/17 22:54 100.4 F H 111 H 32 H 121/83 98 - General General Appearance: Alert, Oriented x3, Cooperative, Mild distress Limitations: No limitations - Head Head exam: Normal inspection - Eye Eye exam: Normal appearance, PERRL, EOMI Pupils: Normal accommodation - ENT ENT exam: Normal exam, Mucous membranes moist, Normal external ear exam, Normal orophraynx Ear exam: Normal external inspection. negative: External canal tenderness Nasal Exam: Normal inspection. negative: Discharge, Sinus tenderness Mouth exam: Normal external inspection, Tongue normal Teeth exam: Normal inspection. negative: Dental caries Throat exam: Normal inspection. negative: Tonsillar erythema, Tonsillar exudate - Neck Neck exam: Normal inspection, Full ROM. negative: Tenderness - Respiratory Respiratory exam: Normal lung sounds bilaterally. negative: Respiratory distress - Cardiovascular Cardiovascular Exam: Normal rhythm, Normal heart sounds, Tachycardia Peripheral Pulses: 2+: Radial (R), Radial (L), Dorsalis Pedis (R), Dorsalis Pedis (L) - GI/Abdominal GI/Abdominal exam: Soft, Normal bowel sounds. negative: Tenderness - Rectal Rectal exam: Deferred - exam: Deferred - Extremities Extremities exam: Normal inspection, Full ROM, Normal capillary refill, Tenderness - Back Back exam: Reports: Normal inspection, Full ROM. Denies: Muscle spasm, Rash noted, Tenderness - Neurological Neurological exam: Alert, CN II-XII intact, Normal gait, Oriented X3 - Psychiatric Psychiatric exam: Normal affect, Normal mood - Skin Skin exam: Dry, Erythema (RLE), Intact, Warm Results - Labs Result Diagrams: 09/05/17 23:05 09/06/17 00:00 Labs Last 24 Hours: Laboratory Results - last 24 hr 09/05/17 09/05/17 09/06/17 00:01 23:05 00:00 WBC 28.4 H* RBC 5.60 Hgb 15.3 Hct 46.6 MCV 83.2 MCH 27.3 MCHC 32.8 RDW 13.4 Plt Count 234 MPV 9.6 Neutrophils % 92.0 H Band Neutrophils % 4.0 Lymphocytes % 1.7 L Monocytes % 2.9 Eosinophils % 0.0 Basophils % 0.1 Lymphocytes 1.0 L Monocytes 3.0 Basophils 0.0 Eosinophil Count 0.0 Sodium 140 Potassium 4.4 Chloride 98 Carbon Dioxide 23.0 Anion Gap 19.0 H BUN 15 Creatinine 1.3 H Estimated GFR > 60 Random Glucose 118 H Lactic Acid 2.6 H Calcium 9.4 VTE H&P Assessment - Risk for VTE Risk for VTE: Yes Risk Level: Moderate Risk Assessment Date: 09/06/17 Risk Assessment Time: 10:08 VTE Orders Placed or Will Be Placed: Yes Plan - Inpatient Certification Inpatient Certification: Admit to inpatient care: Based on my medical assessment, after consideration of patient's risk factors (age, co-morbidities and patient presenting symptoms and acuity), I expect that this patient will remain in the hospital greater than or equal to two midnights and that the services needed warrant inpatient care because: Patient Risk Factors: [cellulitis, elevated WBC, elevated lactic, fever, tachycardic] Estimated length of stay: [96 hours] The patient may reasonably be expected to be discharged or transferred to a hospital within 96 hours after admission to [facility]. Services needed: [IV antibiotics, IV fluids, cardiac monitoring] Post hospital care (if known): [] I certify that my determination is in accordance with my understanding of Medicare requirements for reasonable and necessary inpatient services. 09/06/17 10:09 - Detailed Diagnosis and Plan (1) Cellulitis of lower extremity Current Visit: No Status: Acute Base Code: L03.119 - CELLULITIS OF UNSPECIFIED PART OF LIMB Comment: 09/06/2017: RLE cellulitis with erythema worsening over the past 24 hours. Has failed clindamycin and cipro PO. WBC 28.4, lactic 2.6. Febrile at 100.4. -Erythema marked on RLE and groin -No abscess noted or area to culture -Vancomycin and cefepime IVPB -2L NS IV -CT abdomen pelvis ordered due to erythema extending into groin, results pending (2) Sepsis Current Visit: Yes Status: Acute Base Code: A41.9 - SEPSIS, UNSPECIFIED ORGANISM Comment: 09/06/2017: Sepsis due to cellulitis. HR 90-110, BP 100/70, Temp 100.4, WBC 28.4, lactic 2.6 -2L NS fluid bolus -Vancomycin and cefepime q12h IVPB -Repeat labs in 12 hours (3) Fever Current Visit: Yes Status: Acute Base Code: R50.9 - FEVER, UNSPECIFIED Comment: 09/06/2017: Patient reports being febrile at home over the last 24 hours with frequent chills, sweating, and malaise. Highest recorded temp here 101.4F -Tylenol 1000mg q6h prn fever -Fluids running @125ml/hr -blood cultures drawn in ER
[2017-09-06] MEDS ORDERED: VANCOMYCIN HCL 1,250 MG in 0.9 % SODIUM CHLORIDE 250ML 250 ML IVPB SCH (10:45)
[2017-09-06] MEDS: CEFEPIME HCL 2 GM in 0.9 % SODIUM CHLORIDE 100ML 100 ML IVPB SCH ×2 (11:16→22:18)
[2017-09-06] MEDS: ACETAMINOPHEN 500 MG TABLET PO PRN ×2 (11:16→17:27)
[2017-09-06 12:54] LABS: HEMATOCRIT 43.2 % (42.0-52.0); HEMOGLOBIN 13.9 gm/dl (14.0-18.0); MEAN CELL VOLUME 83.6 fl (81-97); MEAN CORPUSCULAR HGB CONC 32.2 g/dl (32-36); MEAN PLATELET VOLUME 9.3 fl (7.4-10.4); PLATELET COUNT 180 K/uL (130-400); RED BLOOD COUNT 5.17 M/uL (4.40-5.70); RED CELL DISTRIBUTION WIDTH 13.8 % (11.5-14.5); WHITE BLOOD COUNT W/O DIFF 18.2 K/uL (4.2-12.2)
[2017-09-06 13:14] LABS: MEAN CORPUSCULAR HEMOGLOBIN 26.8 pg (27-33)
[2017-09-06] MEDS: VANCOMYCIN HCL 2,000 MG in 0.9 % SODIUM CHLORIDE 250ML 250 ML IVPB SCH ×2 (13:16→23:59)
[2017-09-06] MEDS: IBUPROFEN 600 MG TABLET PO PRN ×2 (13:30→20:15)
[2017-09-06] MEDS: 0.9 % SODIUM CHLORIDE 1000ML 1,000 ML IV SCH ×3 (13:37→23:56)
[2017-09-06] MEDS: ENOXAPARIN 40 MG/0.4 ML SYR SQ SCH (13:37)
[2017-09-07] MEDS: IBUPROFEN 600 MG TABLET PO PRN ×3 (02:20→21:15)
[2017-09-07 07:19] LABS: HEMATOCRIT 44.6 % (42.0-52.0); HEMOGLOBIN 14.2 gm/dl (14.0-18.0); MEAN CELL VOLUME 84.5 fl (81-97); MEAN CORPUSCULAR HEMOGLOBIN 26.9 pg (27-33); MEAN CORPUSCULAR HGB CONC 31.8 g/dl (32-36); PLATELET COUNT 167 K/uL (130-400); RED BLOOD COUNT 5.28 M/uL (4.40-5.70); RED CELL DISTRIBUTION WIDTH 13.7 % (11.5-14.5); WHITE BLOOD COUNT W/O DIFF 14.7 K/uL (4.2-12.2)
[2017-09-07 07:31] LABS: BLOOD UREA NITROGEN 9 mg/dL (6-20); CREATININE 0.8 mg/dL (0.7-1.2); EST GLOMERULAR FILTRATION RATE > 60 mL/min; GLUCOSE,RANDOM 87 mg/dL (74-109)
[2017-09-07 07:36] LABS: LACTIC ACID 1.7 mmol/L (0.5-2.2)
[2017-09-07 07:41] LABS: PLATELET ESTIMATE NORMAL (NORMAL)
--- NOTE | 2017-09-07 08:14 | CT SCAN REPORT ---
EXAM: CT OF THE PELVIS WITH CONTRAST HISTORY: RIGHT LEG CELLULITIS. TECHNIQUE: Contrast enhanced helical CT examination of the pelvis was performed with images extended down to the distal femoral diaphysis level. 100 ml of Omnipaque 300 were utilized. Comparison: Venous Doppler examination of the right lower extremity dated . FINDINGS: There are a few lymph nodes identified within the right external iliac and common femoral chains. That adjacent to the medial margin of the right common femoral vein origin measures 10 mm in short axis diameter. The other lymph nodes are smaller. There is, however, fat stranding in these regions. Additionally, there are multiple lymph nodes in the right common femoral region (anterior proximal right thigh) with the largest measuring 2.0 x 3.4 cm. There is also fat stranding in this region. Subcutaneous fat stranding extends from this level distally within the inner thigh. There is, however, no evidence of abscess. The vasculature appears patent. No intrapelvic mass nor free pelvic fluid. Occasional diverticula within the visualized left colon without evidence of diverticulitis. The appendix is visualized and normal in appearance. No intrinsic urinary bladder abnormality is seen. No lytic or blastic bone lesion. IMPRESSION: 1. ABNORMAL LYMPH NODES WITH ADJACENT FAT STRANDING WITHIN THE DISTAL RIGHT EXTERNAL ILIAC/COMMON FEMORAL CHAINS EXTENDING INTO THE PROXIMAL RIGHT THIGH WITH THE LARGEST LYMPH NODE IN THE ANTERIOR PROXIMAL RIGHT THIGH MEASURING 2.0 X 3.4 CM. THESE FINDINGS ARE CONSISTENT WITH CELLULITIS AND LYMPHADENITIS. THERE IS NO EVIDENCE OF ABSCESS AND THE VASCULATURE APPEARS PATENT. THE CELLULITIS DOES APPEAR TO EXTEND DISTALLY INTO THE INNER THIGH. 2. OCCASIONAL DIVERTICULA WITHIN THE DISTAL COLON WITHOUT EVIDENCE OF DIVERTICULITIS. NORMAL APPENDIX. JOB NUMBER: [id number] [facility]
[2017-09-07] MEDS: ENOXAPARIN 40 MG/0.4 ML SYR SQ SCH (10:25)
[2017-09-07] MEDS: 0.9 % SODIUM CHLORIDE 1000ML 1,000 ML IV SCH ×3 (10:28→23:00)
--- NOTE | 2017-09-07 11:11 | Physician Progress Note ---
Subjective - Date Date of Physician Progress Note: 09/07/17 - Subjective Subjective Comment: 09/07/2017: Patient alert and oriented x 4, resting comfortably in bed. Patient appears less flushed today, overall appears better. Reports continued intermittent fatigue and malaise. Erythema of RLE not worsening, mild improvement from yesterday. Patient continues to have intermittent fevers over the last 24 hours, intermittent tachycardia, and normotensive. Blood cultures reports came back with no growth seen. WBC improved at 14.7 today, lactic acid decreased to 1.7. Patient continuing to receive NS @ 125ml/hr and day 2 of IV Vanco and cefepime. Patient receiving Tylenol and Motrin for fever and pain control. Patient was seen by I&D in the past for recurrent cellulitis but was not happy with treatment received from their office. Patient also voiced concerns of seeing specialists outpatient at this time as his insurance will not cover outpatient appointments as he is still in a 90day probation period. Patient currently has no PCP, states he can establish with someone in [place] if necessary. Location: Right, Lower extremity Radiation: Non-Radiating Quality: Aching Objective - Vital Signs Vital Signs: Vital Signs - Last 24 Hrs Temp Pulse Resp BP BP Pulse Ox 09/07/17 10:00 98.9 F 92 H 16 113/62 96 09/07/17 05:58 97.5 F L 83 22 107/64 09/07/17 02:30 100 F H 89 24 109/55 97 09/06/17 23:03 97.9 F 86 18 94/52 95 09/06/17 20:36 83 18 09/06/17 18:00 99.8 F H 83 18 121/46 93 L 09/06/17 14:00 98.7 F 82 18 93/51 95 09/06/17 12:24 102.0 F H 09/06/17 11:10 103.1 F H - General General Appearance: Alert, Oriented x3, Cooperative, No acute distress Limitations: No limitations - Head Head exam: Normal inspection - Eye Eye exam: Normal appearance, PERRL, EOMI Pupils: Normal accommodation - ENT ENT exam: Normal exam, Mucous membranes moist, Normal external ear exam Ear exam: Normal external inspection. negative: External canal tenderness Nasal Exam: Normal inspection. negative: Discharge, Sinus tenderness Mouth exam: Normal external inspection Teeth exam: Normal inspection. negative: Dental caries Throat exam: Normal inspection. negative: Tonsillar erythema, Tonsillar exudate - Neck Neck exam: Normal inspection, Full ROM. negative: Tenderness - Respiratory Respiratory exam: Normal lung sounds bilaterally. negative: Respiratory distress - Cardiovascular Cardiovascular Exam: Regular rate, Normal rhythm, Normal heart sounds Peripheral Pulses: 2+: Radial (R), Radial (L), Dorsalis Pedis (R), Dorsalis Pedis (L) - GI/Abdominal GI/Abdominal exam: Soft, Normal bowel sounds. negative: Tenderness - Rectal Rectal exam: Deferred - exam: Deferred - Extremities Extremities exam: Normal inspection, Full ROM, Normal capillary refill, Tenderness (RLE) - Back Back exam: Reports: Normal inspection, Full ROM. Denies: Muscle spasm, Rash noted, Tenderness - Neurological Neurological exam: Alert, Normal gait, Oriented X3 - Psychiatric Psychiatric exam: Normal affect, Normal mood - Skin Skin exam: Dry, Erythema (RLE), Intact, Warm (RLE) Assessment and Plan - Assessment and Plan (1) Cellulitis of lower extremity Current Visit: No Status: Acute Base Code: L03.119 - CELLULITIS OF UNSPECIFIED PART OF LIMB Comment: 09/07/2017: RLE cellulitis with erythema stable over the past 24 hours. Has failed clindamycin and cipro PO. WBC 14.7 today, down from 28.4, and lactic 1.7, down from 2.6. Intermittent fever contiues over the past 24 hours. -Erythema marked on RLE and groin -No abscess noted or area to culture -Vancomycin and cefepime IVPB -NS @ 125ml/hr -CT abdomen pelvis ordered due to erythema extending into groin, shows cellulitis with lymphadenitis -Tylenol and Motrin for fever/pain -Will repeat CBC and BMP tomorrow -Possible I&D consult on d/c (2) Sepsis Current Visit: Yes Status: Acute Base Code: A41.9 - SEPSIS, UNSPECIFIED ORGANISM Comment: 09/07/2017: Sepsis due to cellulitis improving. HR 90-110, Temp 99.3, WBC 14.7, lactic 1.7 -NS @ 125ml/hr -Vancomycin and cefepime q12h IVPB -Repeat labs tomorrow (3) Fever Current Visit: Yes Status: Acute Base Code: R50.9 - FEVER, UNSPECIFIED Comment: 09/07/2017: Patient reports being febrile at home over the last 24 hours with frequent chills, sweating, and malaise. Remains febrile over the past 24 hours of admission -Tylenol 1000mg q6h prn fever, Motrin 800mg q6h prn fever -Fluids running @125ml/hr -blood cultures drawn, results with no growth (4) DVT prophylaxis Current Visit: Yes Status: Acute Base Code: [id number] - Comment: 09/07/2017: Patient at moderate risk due to decreased mobility, fever, and sepsis -Lovenox 40mg SQ (5) Full code status Current Visit: Yes Status: Acute Base Code: Z78.9 - OTHER SPECIFIED HEALTH STATUS Comment: 09/07/2017: Patient full code status this admission Results - Labs Result Diagrams: 09/07/17 06:42 09/07/17 06:42 Labs Last 24 Hours: Laboratory Results - last 24 hr 09/06/17 09/06/17 09/07/17 12:45 12:45 06:42 WBC 18.2 H 14.7 H RBC 5.17 5.28 Hgb 13.9 L 14.2 Hct 43.2 44.6 MCV 83.6 84.5 MCH 26.8 L 26.9 L MCHC 32.2 31.8 L RDW 13.8 13.7 Plt Count 180 167 MPV 9.3 10.0 Neutrophils % 92.0 H 90.0 H Eosinophils % Not Reportable Not Reportable Basophils % Not Reportable Not Reportable Lymphocytes 4.0 L 7.0 L Monocytes 4.0 3.0 Platelet Estimate Normal RBC Morphology Normal Sodium Potassium Chloride Carbon Dioxide Anion Gap BUN Creatinine Estimated GFR Random Glucose Lactic Acid 2.1 Calcium 09/07/17 06:42 WBC RBC Hgb Hct MCV MCH MCHC RDW Plt Count MPV Neutrophils % Eosinophils % Basophils % Lymphocytes Monocytes Platelet Estimate RBC Morphology Sodium 138 Potassium 3.8 Chloride 103 Carbon Dioxide 21.0 L Anion Gap 14.0 BUN 9 Creatinine 0.8 Estimated GFR > 60 Random Glucose 87 Lactic Acid 1.7 Calcium 7.8 L DVT/PE Assessment - Risk for VTE Risk for VTE: Yes Risk Level: Moderate Risk Assessment Date: 09/06/17 Risk Assessment Time: 10:08 VTE Orders Placed or Will Be Placed: Yes - Active Medicaitons Current Medications: Current Medications Acetaminophen (Tylenol 500mg Tab) 1,000 mg PO Q6H PRN PRN Reason: PAIN - MILD(1-4)/FEVER Last Admin: 09/06/17 17:27 Dose: 1,000 mg Enoxaparin Sodium (Lovenox) 40 mg SQ DAILY [facility] Last Admin: 09/07/17 10:25 Dose: Not Given Sodium Chloride () 1,000 mls @ 125 mls/hr IV .Q8H [facility] Last Admin: 09/07/17 10:28 Dose: 125 mls/hr CEFEPIME HCL 2 gm/ Sodium (Chloride) 100 mls @ 200 mls/hr IVPB Q12HR [facility] Last Infusion: 09/06/17 23:03 Dose: Infused Vancomycin HCl 2,000 mg/ (Sodium Chloride) 250 mls @ 250 mls/60 min IVPB Q12H [facility] Stop: 09/11/17 12:01 Last Infusion: 09/07/17 02:16 Dose: Infused Ibuprofen (Motrin 600mg) 800 mg PO Q6H PRN PRN Reason: FEVER Last Admin: 09/07/17 02:20 Dose: 800 mg AMI Plan - Labs Result Diagrams: 09/07/17 06:42 09/07/17 06:42
[2017-09-07] MEDS ORDERED: VANCOMYCIN HCL 1,000 MG in 0.9 % SODIUM CHLORIDE 250ML 250 ML IVPB SCH ×2 (12:00→13:00)
[2017-09-07] MEDS: CEFEPIME HCL 2 GM in 0.9 % SODIUM CHLORIDE 100ML 100 ML IVPB SCH (12:29)
[2017-09-07] MEDS: CEFEPIME HCL 2 GM in 0.9% SODIUM CHLORIDE 50ML 50 ML IVPB SCH (21:16)
[2017-09-07] MEDS ORDERED: IBUPROFEN 400 MG TABLET PO PRN (21:30)
[2017-09-07] MEDS: VANCOMYCIN HCL 1,000 MG in DEXTROSE 5 % IN WATER 250 ML IVPB SCH ×2 (23:02)
[2017-09-08] MEDS: VANCOMYCIN HCL 1,000 MG in DEXTROSE 5 % IN WATER 250 ML IVPB SCH ×10 (00:11→22:13)
[2017-09-08] MEDS: IBUPROFEN 400 MG TABLET PO PRN ×4 (03:44→23:35)
[2017-09-08 07:03] LABS: HEMATOCRIT 43.4 % (42.0-52.0); HEMOGLOBIN 13.9 gm/dl (14.0-18.0); MEAN CELL VOLUME 82.7 fl (81-97); MEAN PLATELET VOLUME 10.2 fl (7.4-10.4); PLATELET COUNT 197 K/uL (130-400); RED BLOOD COUNT 5.25 M/uL (4.40-5.70); RED CELL DISTRIBUTION WIDTH 13.7 % (11.5-14.5); WHITE BLOOD COUNT W/O DIFF 11.5 K/uL (4.2-12.2)
[2017-09-08 07:13] LABS: BLOOD UREA NITROGEN 6 mg/dL (6-20); CREATININE 0.7 mg/dL (0.7-1.2); EST GLOMERULAR FILTRATION RATE > 60 mL/min; GLUCOSE,RANDOM 90 mg/dL (74-109)
[2017-09-08 07:27] LABS: MEAN CORPUSCULAR HEMOGLOBIN 26.4 pg (27-33)
--- NOTE | 2017-09-08 10:45 | Physician Progress Note ---
Subjective - Date Date of Physician Progress Note: 09/08/17 - Subjective Subjective Comment: 09/08/2017: Patient alert and oriented x 4, resting comfortably in bed. Patient appears less flushed today, overall appears better. Reports continued intermittent fevers. Erythema of RLE improving from yesterday. Patient continues to have intermittent fevers over the last 24 hours, intermittent tachycardia, and normotensive. Blood cultures reports came back with no growth seen. WBC improved at 11.5 today, lactic acid decreased to 1.0. Fluids stopped as PO intake adequate and day 3 of IV Vanco and cefepime. Patient receiving Tylenol and Motrin for fever and pain control. Sima working with patient to establish PCP for discharge. Plan to discharge home tomorrow. Location: Right, Lower extremity Objective - Vital Signs Vital Signs: Vital Signs - Last 24 Hrs Temp Pulse Resp BP Pulse Ox 09/08/17 06:00 98.1 F 75 18 111/58 94 L 09/08/17 02:00 98.4 F 77 18 118/75 93 L 09/07/17 22:00 100.2 F H 83 15 124/69 98 09/07/17 21:00 16 09/07/17 18:00 97.9 F 85 18 103/56 97 09/07/17 14:00 98.8 F 93 H 20 93/47 96 - General General Appearance: Alert, Oriented x3, Cooperative, No acute distress Limitations: No limitations - Head Head exam: Normal inspection - Eye Eye exam: Normal appearance, PERRL, EOMI Pupils: Normal accommodation - ENT ENT exam: Normal exam, Mucous membranes moist, Normal external ear exam Ear exam: Normal external inspection. negative: External canal tenderness Nasal Exam: Normal inspection. negative: Discharge, Sinus tenderness Mouth exam: Normal external inspection Teeth exam: Normal inspection. negative: Dental caries Throat exam: Normal inspection. negative: Tonsillar erythema, Tonsillar exudate - Neck Neck exam: Normal inspection, Full ROM. negative: Tenderness - Respiratory Respiratory exam: Normal lung sounds bilaterally. negative: Respiratory distress - Cardiovascular Cardiovascular Exam: Regular rate, Normal rhythm, Normal heart sounds Peripheral Pulses: 2+: Radial (R), Radial (L), Dorsalis Pedis (R), Dorsalis Pedis (L) - GI/Abdominal GI/Abdominal exam: Soft, Normal bowel sounds. negative: Tenderness - Rectal Rectal exam: Deferred - exam: Deferred - Extremities Extremities exam: Normal inspection, Full ROM, Normal capillary refill, Tenderness (RLE) - Back Back exam: Reports: Normal inspection, Full ROM. Denies: Muscle spasm, Rash noted, Tenderness - Neurological Neurological exam: Alert, Normal gait, Oriented X3 - Psychiatric Psychiatric exam: Normal affect, Normal mood - Skin Skin exam: Dry, Erythema (RLE), Intact, Warm (RLE) Assessment and Plan - Assessment and Plan (1) Cellulitis of lower extremity Current Visit: No Status: Acute Base Code: L03.119 - CELLULITIS OF UNSPECIFIED PART OF LIMB Comment: 09/08/2017: RLE cellulitis with erythema improving over the past 24 hours. Has failed clindamycin and cipro PO. WBC 11.5 today, down from 14.7, and lactic 1.0, down from 1.7. Intermittent fever contiues over the past 24 hours. -Erythema marked on RLE and groin -No abscess noted or area to culture -Vancomycin and cefepime IVPB -IV fluids DC -CT abdomen pelvis ordered due to erythema extending into groin, shows cellulitis with lymphadenitis -Tylenol and Motrin for fever/pain -Possible I&D consult on d/c -Plan to dc home tomorrow (2) Sepsis Current Visit: Yes Status: Acute Base Code: A41.9 - SEPSIS, UNSPECIFIED ORGANISM Comment: 09/08/2017: Sepsis due to cellulitis improving. HR 90-110, Temp 98.7, WBC 11.5, lactic 1.0 -Fluids DC, PO intake adequate -Vancomycin and cefepime q12h IVPB (3) Fever Current Visit: Yes Status: Acute Base Code: R50.9 - FEVER, UNSPECIFIED Comment: 09/08/2017: Patient reports being febrile at home [employer]. Remains febrile over the past 24 hours of admission with low-grade temp of 100.4 -Tylenol 1000mg q6h prn fever, Motrin 800mg q6h prn fever -blood cultures drawn, results with no growth (4) DVT prophylaxis Current Visit: Yes Status: Acute Base Code: [id number] - Comment: 09/08/2017: Patient at moderate risk due to decreased mobility, fever, and sepsis -Lovenox 40mg SQ (5) Full code status Current Visit: Yes Status: Acute Base Code: Z78.9 - OTHER SPECIFIED HEALTH STATUS Comment: 09/08/2017: Patient full code status this admission Results - Labs Result Diagrams: 09/08/17 06:43 09/08/17 06:43 Labs Last 24 Hours: Laboratory Results - last 24 hr 09/08/17 09/08/17 09/08/17 06:43 06:43 06:43 WBC 11.5 RBC 5.25 Hgb 13.9 L Hct 43.4 MCV 82.7 MCH 26.4 L MCHC 32.0 RDW 13.7 Plt Count 197 MPV 10.2 Neutrophils % 78.0 Band Neutrophils % 6.0 H Eosinophils % Not Reportable Basophils % Not Reportable Lymphocytes 8.0 L Monocytes 8.0 Basophils 0.0 Eosinophil Count 0.0 Sodium 142 Potassium 3.6 Chloride 101 Carbon Dioxide 26.0 Anion Gap 15.0 BUN 6 Creatinine 0.7 Estimated GFR > 60 Random Glucose 90 Lactic Acid 1.0 Calcium 8.1 L DVT/PE Assessment - Risk for VTE Risk for VTE: No Risk Level: Moderate Risk Assessment Date: 09/06/17 Risk Assessment Time: 10:08 VTE Orders Placed or Will Be Placed: Yes - Active Medicaitons Current Medications: Current Medications Acetaminophen (Tylenol 500mg Tab) 1,000 mg PO Q6H PRN PRN Reason: PAIN - MILD(1-4)/FEVER Last Admin: 09/06/17 17:27 Dose: 1,000 mg Enoxaparin Sodium (Lovenox) 40 mg SQ DAILY [facility] Last Admin: 09/07/17 10:25 Dose: Not Given Sodium Chloride () 1,000 mls @ 125 mls/hr IV .Q8H [facility] Last Admin: 09/07/17 23:00 Dose: Not Given CEFEPIME HCL 2 gm/ Sodium (Chloride) 50 mls @ 100 mls/hr IVPB Q12HR [facility] Last Infusion: 09/07/17 22:00 Dose: Infused Vancomycin HCl 1,000 mg/ (Dextrose) 250 mls @ 250 mls/60 min IVPB Q12H [facility] Stop: 09/12/17 12:01 Last Infusion: 09/08/17 00:08 Dose: Infused Vancomycin HCl 1,000 mg/ (Dextrose) 250 mls @ 250 mls/60 min IVPB Q12H [facility] Stop: 09/12/17 13:01 Last Infusion: 09/08/17 01:10 Dose: Infused Ibuprofen (Motrin 400mg) 800 mg PO Q6H PRN PRN Reason: FEVER Last Admin: 09/08/17 03:44 Dose: 800 mg AMI Plan - Labs Result Diagrams: 09/08/17 06:43 09/08/17 06:43
[2017-09-08] MEDS: CEFEPIME HCL 2 GM in 0.9% SODIUM CHLORIDE 50ML 50 ML IVPB SCH ×2 (11:06→23:36)
[2017-09-08] MEDS: 0.9 % SODIUM CHLORIDE 1000ML 1,000 ML IV SCH (11:07)
[2017-09-08] MEDS: ENOXAPARIN 40 MG/0.4 ML SYR SQ SCH (11:07)
[2017-09-09] MEDS: VANCOMYCIN HCL 1,000 MG in DEXTROSE 5 % IN WATER 250 ML IVPB SCH ×4 (04:05→05:22)
[2017-09-09 06:32] LABS: HEMATOCRIT 41.9 % (42.0-52.0); HEMOGLOBIN 13.4 gm/dl (14.0-18.0); MEAN CELL VOLUME 82.6 fl (81-97); MEAN CORPUSCULAR HEMOGLOBIN 26.4 pg (27-33); MEAN PLATELET VOLUME 9.5 fl (7.4-10.4); PLATELET COUNT 210 K/uL (130-400); RED BLOOD COUNT 5.07 M/uL (4.40-5.70); RED CELL DISTRIBUTION WIDTH 13.9 % (11.5-14.5); WHITE BLOOD COUNT W/O DIFF 9.5 K/uL (4.2-12.2)
[2017-09-09] MEDS: CEFEPIME HCL 2 GM in 0.9% SODIUM CHLORIDE 50ML 50 ML IVPB SCH ×2 (08:40→09:55)
[2017-09-09] MEDS: ENOXAPARIN 40 MG/0.4 ML SYR SQ SCH (09:27)
--- NOTE | 2017-09-09 09:43 | Discharge Summary ---
Providers Discharge Summary Date: 09/09/17 Date of admission: 09/06/17 00:47 Expected Date of Discharge: 09/09/17 Attending physician: EMBER NG Physical Exam - Vital Signs Vital Signs: Vital Signs - Last 24 Hrs Temp Pulse Resp BP Pulse Ox 09/09/17 06:00 98.1 F 71 17 109/77 97 09/09/17 02:00 97.9 F 64 16 113/73 98 09/08/17 22:00 98.8 F 76 16 114/64 96 09/08/17 21:00 76 16 09/08/17 18:00 96.8 F L 75 16 114/59 99 09/08/17 10:00 97.7 F 84 16 97/56 98 - General General Appearance: Alert, Oriented x3, Cooperative, No acute distress Limitations: No limitations - Head Head exam: Normal inspection - Eye Eye exam: Normal appearance, PERRL, EOMI Pupils: Normal accommodation - ENT ENT exam: Normal exam, Mucous membranes moist, Normal external ear exam Ear exam: Normal external inspection. negative: External canal tenderness Nasal Exam: Normal inspection. negative: Discharge, Sinus tenderness Mouth exam: Normal external inspection Teeth exam: Normal inspection. negative: Dental caries Throat exam: Normal inspection. negative: Tonsillar erythema, Tonsillar exudate - Neck Neck exam: Normal inspection, Full ROM. negative: Tenderness - Respiratory Respiratory exam: Normal lung sounds bilaterally. negative: Respiratory distress - Cardiovascular Cardiovascular Exam: Regular rate, Normal rhythm, Normal heart sounds Peripheral Pulses: 2+: Radial (R), Radial (L), Dorsalis Pedis (R), Dorsalis Pedis (L) - GI/Abdominal GI/Abdominal exam: Soft, Normal bowel sounds. negative: Tenderness - Rectal Rectal exam: Deferred - exam: Deferred - Extremities Extremities exam: Normal inspection, Full ROM, Normal capillary refill, Pedal edema (RLE), Tenderness (RLE) - Back Back exam: Reports: Normal inspection, Full ROM. Denies: Muscle spasm, Rash noted, Tenderness - Neurological Neurological exam: Alert, Normal gait, Oriented X3 - Psychiatric Psychiatric exam: Normal affect, Normal mood - Skin Skin exam: Dry, Erythema (RLE), Intact, Warm (RLE) Hospitalization - Hospitalization Admission Diagnosis: cellulitis - Problem List/Discharge Diagnosis (1) Cellulitis of lower extremity Current Visit: No Status: Acute Base Code: L03.119 - CELLULITIS OF UNSPECIFIED PART OF LIMB Comment: 09/09/2017: RLE cellulitis with erythema improving over the past 24 hours. Has failed clindamycin and cipro PO. WBC 9.5 today, down from 11.5, and lactic 1.0, down from 1.7. Has been afebrile over the past 24 hours. -Erythema marked on RLE and groin, significant improvement. Edema improved as well -No abscess noted or area to culture -Vancomycin and cefepime IVPB. Will switch to Bactrim on dc -IV fluids DC -CT abdomen pelvis ordered due to erythema extending into groin, shows cellulitis with lymphadenitis -Tylenol and Motrin for fever/pain -I&D consult on d/c, patient to establish PCP on d/c (2) Sepsis Current Visit: Yes Status: Acute Base Code: A41.9 - SEPSIS, UNSPECIFIED ORGANISM Comment: 09/09/2017: Sepsis due to cellulitis improving. HR 90-110, Temp 98.7, WBC 9.5, lactic 1.0 -Fluids DC, PO intake adequate -Vancomycin and cefepime q12h IVPB (3) Fever Current Visit: Yes Status: Acute Base Code: R50.9 - FEVER, UNSPECIFIED Comment: 09/09/2017: Patient reports being febrile at home [employer]. Remains afebrile over the past 24 hours -Tylenol 1000mg q6h prn fever, Motrin 800mg q6h prn fever -blood cultures drawn, results with no growth (4) DVT prophylaxis Current Visit: Yes Status: Acute Base Code: [id number] - Comment: 09/09/2017: Patient at moderate risk due to decreased mobility, fever, and sepsis -Lovenox 40mg SQ (5) Full code status Current Visit: Yes Status: Acute Base Code: Z78.9 - OTHER SPECIFIED HEALTH STATUS Comment: 09/09/2017: Patient full code status this admission - Hospitalization Course Disposition: Home, Self-Care Hospital Course: 36 year old male presents for cellulitis of the right lower leg. Patient was seen in ER 09/05/17 for similar symptoms, WBC at that time was 17, patient was febrile at 100.4F, mild erythema noted to right lower extremity. Patient refused admission at that time and left AMA with clindamycin and cipro PO. Patient returned to ER about 12 hours later with significant increased redness of right lower extremity and continued fever and malaise. Patient has had recurrent cellulitis infections requiring admissions to both [facility] and [facility] with ID consult. No other medical history, no current medications, no PCP. ER Course: VS: Temp 100.4F, HR 111, RR 32, BP 121/83, Pulse ox 98% Labs: WBC 28.4, lactic 2.6, neutrophils 92%, blood cultures drawn Patient started on clindamycin IVP Refused transfer to [facility] or [facility] due to bad past experiences 09/06/2017: Patient alert and oriented x 4, sleeping upon entering room. Appears flushed, describes intermittent chills, sweating, and malaise. Temp 100.4, HR 96, BP 100/70, RR 20, Pulse ox 96% RA. Significant erythema noted on right lower extremity that has progressed into his groin, denies any pain at this time. 09/09/17: Patient A&O x 4. Appears significantly improved since admission. Patient has received 3 days of IV Vanco and cefipime. Significant improvement in WBC, down to 9.5 and lactic acid down to 1.0. Patient has remained afebrile over the past 24 hours, all other vitals WNL. Patient currently has no PCP due to having poor insurance coverage. Patient cannot be seen at [facility] due to insurance. Patient given information on a clinic in [place] that will accept his insurance, strongly encouraged to follow-up with them within 2 weeks. Patient also referred to I&D, also encouraged to follow-up with them due to recurrent cellulitis infections over the past 6 years. Procedures: Imaging and X-Rays 09/06/17 11:28 PELVIS W CONTRAST [CT] Stat Abnormal Labs: Abnormal Lab Results 09/05/17 09/05/17 09/06/17 Range/Units 00:01 23:05 00:00 WBC 28.4 H* (4.2-12.2) K/uL Hgb (14.0-18.0) gm/dl Hct (42.0-52.0) % MCH (27-33) pg MCHC (32-36) g/dl Neutrophils % 92.0 H (47-80) % Band Neutrophils % (0-5) % Lymphocytes % 1.7 L (16-45) % Lymphocytes 1.0 L (16-45) % Carbon Dioxide (22-29) mmol/L Anion Gap 19.0 H (7-16) Creatinine 1.3 H (0.7-1.2) mg/dL Random Glucose 118 H (74-109) mg/dL Lactic Acid 2.6 H (0.5-2.2) mmol/L Calcium (8.6-10.0) mg/dL 09/06/17 09/07/17 09/07/17 Range/Units 12:45 06:42 06:42 WBC 18.2 H 14.7 H (4.2-12.2) K/uL Hgb 13.9 L (14.0-18.0) gm/dl Hct (42.0-52.0) % MCH 26.8 L 26.9 L (27-33) pg MCHC 31.8 L (32-36) g/dl Neutrophils % 92.0 H 90.0 H (47-80) % Band Neutrophils % (0-5) % Lymphocytes % (16-45) % Lymphocytes 4.0 L 7.0 L (16-45) % Carbon Dioxide 21.0 L (22-29) mmol/L Anion Gap (7-16) Creatinine (0.7-1.2) mg/dL Random Glucose (74-109) mg/dL Lactic Acid (0.5-2.2) mmol/L Calcium 7.8 L (8.6-10.0) mg/dL 09/08/17 09/08/17 09/09/17 Range/Units 06:43 06:43 05:55 WBC (4.2-12.2) K/uL Hgb 13.9 L 13.4 L (14.0-18.0) gm/dl Hct 41.9 L (42.0-52.0) % MCH 26.4 L 26.4 L (27-33) pg MCHC (32-36) g/dl Neutrophils % (47-80) % Band Neutrophils % 6.0 H 15.0 H (0-5) % Lymphocytes % (16-45) % Lymphocytes 8.0 L (16-45) % Carbon Dioxide (22-29) mmol/L Anion Gap (7-16) Creatinine (0.7-1.2) mg/dL Random Glucose (74-109) mg/dL Lactic Acid (0.5-2.2) mmol/L Calcium 8.1 L (8.6-10.0) mg/dL Condition at Discharge: (1) Good VTE Discharge VTE Reason For No Overlap Therapy: Not Indicated Discharge Medications - Discharge Medications Prescriptions: Sulfamethoxazole/Trimethoprim [Bactrim Ds Tablet] 1 each PO BID #28 tablet Home Medications: Ambulatory Orders Sulfamethoxazole/Trimethoprim [Bactrim Ds Tablet] 1 each PO BID #28 tablet 09/09 [Last Taken Unknown] Discharge Plan - Discharge Instructions Activity at Discharge: Increase Activity as Tolerated Diet at Discharge: Regular Diet Additional Instructions: Take one BACTRIM tonight and then starting tomorrow take it twice a day. Elevate right leg as much as possible, wear compression socks for swelling. Follow-up with [facility] until you have new insurance. You can call [facility] to be seen once you get your new insurance ([phone]). Appointment at [facility] in [place] on 10/06/17 at 10:40AM. Please arrive by 10:00 for check in. [address] [address], . Appointment with [facility] 11/21/17 at 8:30AM [address], [address], [place] [address]. Quality Measures - Quality Measures Quality Measures: Documentation of Current Medications in Medical Record, Screening for High Blood Pressure and F/U Documented - Current Medications Quality Measure: Measure #130: Documentation of Current Medications Documentation of Current Medications: <Current Medications Documented/Reviewed> [Q4335] - Blood Pressure Screening Quality Measure: Screening for High Blood Pressure and Follow-Up Documented Does Patient Have Any of the Following: No Blood Pressure Classification: Normal BP Reading Systolic Measurement: 109 Diastolic Measurement: 77 Screening for High Blood Pressure: < Normal BP, F/U Not Required > [G0860] - Elder Abuse Suspicion Index EASI Reference Information: Sabrina TSAI, Daniel C, Kamille D, Cristina Rodriguez.Development and validation of a tool to assist physicians identification of elder abuse: The Elder Abuse Suspicion Index (EASI ). Journal of Elder Abuse and Neglect, 2008; 20 (3): 276-300.
== END 2017-09-09 11:18 | disposition home or self-care (01) | DRG 602 ==
LOC: ER 22:46 → MEDSURG 09-06 00:47
PROVIDERS: ADMIT Internal Medicine; ATTEND Internal Medicine
DX: L03.115 Cellulitis of right lower limb (principal); A41.9 Sepsis, unspecified organism; Z86.14 Personal history of Methicillin resistant Staphylococcus aureus infection; R50.9 Fever, unspecified; R00.0 Tachycardia, unspecified; D72.829 Elevated white blood cell count, unspecified; R74.0 Nonspecific elevation of levels of transaminase and lactic acid dehydrogenase [LDH]
CPT/HCPCS: 72193; 80048; 80202; 83605; 85027; 96365; 99217; 99220; 99226; 99285; J1650; J7030; J7050; J7060